=== PATIENT | male | born 1975 | race Caucasian/White ===

== ENCOUNTER 2016-05-11 09:45 | Emergency (ER) | payer MEDICARE ==
[~2016-05-11] VITALS: Ht 185.4 cm; Wt 151.5 kg
[~2016-05-11 09:45] MED LIST: /CELE20CA PO; ABIL5TAB; ALEVE PO; AMIT50TA PO; AMIT50TA4 PO; ASPI325T OR; ASPI81TA85 PO; BENA25TA9 PO; BUSP10TA2 OR; BUSP15TA OR; CARI350T19 PO; CELE40TA; CELE40TA OR; CLEO150C PO; CLON1TAB PO; CYMB60CA3 PO; FLUR15CA2; FURO40TA2 OR; GABA-282 PO; GABA300C2 PO; GEMFIBROZIL PO; GEOD20CA14; GEOD20CA14 PO; GLUC500T PO; GLUC850T OR; HYDR25TA6; HYDR25TA8 OR; HYDR50IN3 PO; IBUP600T26 PO; IBUP80TA PO; KLON1TAB OR; LASI40TA; LEVO25TABR; LEVOXYL25 MCG OR; LISI10TA4; LISI10TA4 OR; LITH300T2 OR; LITH450T; LORA2TAB OR; LYRI150C PO; MAGN500T2; MAGN500T2 OR; MECL-68 PO; MELOPOW PO; METF1000 PO; METH10TA2 OR; METH10TA2 PO; NEUR100C OR; NICO21DI4 TD; NOVOLOG100 MG/ML SC; OXYC-517 PO; OXYC1TAB23 PO; ROBA750T4 PO; SAVE25TA PO; SERT-138 PO; SIMV40TA2; SIMV40TA2 OR; SOMA350T PO; TIZA4CAP3 PO; TRAZ100T4 PO; TYLE167L PO; VIST50CA OR; VITA100T OR; ZINC220C OR; ZINC220T2 OR; ZINCLOZ9; ZOLO100T PO; [UNRECOGNIZED DRUG - OTHER] PO; eskalith cr OR
[2016-05-11] MEDS ORDERED: METF1000 PO (09:57)
[2016-05-11] MEDS ORDERED: SERT50TA PO (10:01)
[2016-05-11] MEDS ORDERED: LITH300C PO (10:02)
[2016-05-11] MEDS ORDERED: SIMV40TA2 PO (10:02)
[2016-05-11] MEDS ORDERED: NS 500 ML IV ONE (10:45)
[2016-05-11 11:00] LABS: BASO # 0.1 K/mm3 (0.0-0.2); BASO % 0.9 % (0.0-1.0); EOS # 0.2 K/mm3 (0.0-0.50); EOS % 2.4 % (0.0-3.0); LARGE UNSTAINED CELL # 0.1 K/mm3 (0.0-0.4); LYMPH # 1.7 K/mm3 (1.5-4.5); LYMPH % 20.8 % (24.0-44.0); MEAN CORPUSCULAR HEMOGLOBIN 26.7 pg (27.0-33.0); MEAN CORPUSCULAR HGB CONC 32.7 g/dl (32.0-36.5); MEAN CORPUSCULAR VOLUME 81.7 fl (80.0-96.0); MONO # 0.3 K/mm3 (0.0-0.8); MONO % 4.3 % (0.0-5.0); NEUTROPHILS # 5.5 K/mm3 (1.8-7.7); NEUTROPHILS % 70.6 % (36.0-66.0); PLATELET COUNT, AUTOMATED 201 k/mm3 (150-450); RED CELL DISTRIBUTION WIDTH 13.6 % (11.5-14.5); WHITE BLOOD COUNT 7.8 K/mm3 (4.0-10.0)
[2016-05-11 11:06] LABS: ANION GAP 7 MEQ/L (8-16); BLOOD UREA NITROGEN 16 MG/DL (7-18); CALCIUM LEVEL 8.7 MG/DL (8.5-10.1); CARBON DIOXIDE LEVEL 24 MEQ/L (21-32); CHLORIDE LEVEL 111 MEQ/L (98-107); CREATININE FOR GFR 0.86 MG/DL (0.70-1.30); GLOMERULAR FILTRATION RATE > 60.0 (>60); GLUCOSE, FASTING 132 MG/DL (70-105); POTASSIUM SERUM 4.1 MEQ/L (3.5-5.1); SODIUM LEVEL 142 MEQ/L (136-145)
[2016-05-11] MEDS ORDERED: LORazepam 2 MG/ML VIAL (J2060) IV ONE (12:30)
--- NOTE | 2016-05-11 16:00 | REP ---
MRA BRAIN WITHOUT CONTRAST: HISTORY: Vertigo. 3D [id number] MR angiography was performed at the level of the [place]. The examination is very limited secondary to motion. There is no definite aneurysm, arteriovenous malformation, or atherosclerotic lesion. The A1 segment of the right anterior cerebral artery is hypoplastic. Major intracranial vessels are patent. The right vertebral artery is dominant. IMPRESSION: Limited examination demonstrating no definite aneurysm or arteriovenous malformation. Signed by David Schmidt MD 05/11/2016 04:09 P
--- NOTE | 2016-05-11 16:02 | REP ---
MR BRAIN WITHOUT CONTRAST: HISTORY: Vertigo. COMPARISON: CT 02/09/2012. There are no areas of abnormal signal intensity in the brain. There is no intraparenchymal hemorrhage, infarct, mass, or midline shift. The sella turcica is partially empty. The ventricular system is normal in appearance. There is no extracerebral collection. Mucosal thickening is present in the left maxillary sinus. IMPRESSION:There is no intracranial lesion. Signed by David Schmidt MD 05/11/2016 04:09 P
[2016-05-11] MEDS ORDERED: AZIT250T3 PO (16:13)
[2016-05-11] MEDS ORDERED: MECL-68 PO (16:14)
[2016-05-11] MEDS ORDERED: AZITHROMYCIN 250 MG TAB PO ONE (16:15)
[2016-05-11 16:52] VITALS: BP 128/72
--- NOTE | 2016-05-11 21:49 | ECGEPIP ---
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
== END 2016-05-11 17:02 | disposition home or self-care (01) ==
LOC: M ED 11:58
DX: R42 Dizziness and giddiness (principal); H66.92 Otitis media, unspecified, left ear
CPT/HCPCS: 36415; 70544; 70551; 80048; 84443; 85025; 93005; 93041; 94760; 96374; 99285; J2060

== ENCOUNTER → 2016-12-01 | Outpatient (REF) | payer OTHER ==
[~2016-12-01] MED LIST changes: +AZIT-12 PO; +BENA25TA10 PO; -BENA25TA9 PO; +IBUP-1022 PO; -IBUP600T26 PO; +LITH300C PO; +METF10004 PO; +SERT50TA PO; +SIMV40TA2 PO; +TRAZ-136 PO; -TRAZ100T4 PO
== END ==
LOC: M LAB REF 12:21
PROVIDERS: ATTEND Psychiatry & Neurology Psychiatry
DX: Z51.81 Encounter for therapeutic drug level monitoring (principal); Z79.899 Other long term (current) drug therapy

== ENCOUNTER → 2017-02-23 | Outpatient (REF) | payer OTHER ==
[2017-02-23 13:06] LABS: HEMATOCRIT 45.4 % (42.0-52.0); HEMOGLOBIN 15.4 g/dl (14.0-18.0); MEAN CORPUSCULAR HEMOGLOBIN 27.1 pg (27.0-33.0); MEAN CORPUSCULAR HGB CONC 33.9 g/dl (32.0-36.5); MEAN CORPUSCULAR VOLUME 79.9 fl (80.0-96.0); PLATELET COUNT, AUTOMATED 248 10^3/uL (150-450); RED BLOOD COUNT 5.68 10^6/uL (4.30-6.10); RED CELL DISTRIBUTION WIDTH 13.5 % (11.5-14.5); WHITE BLOOD COUNT 9.9 10^3/uL (4.0-10.0)
[2017-02-23 13:49] LABS: ALBUMIN 4.2 GM/DL (3.2-5.2); ALBUMIN/GLOBULIN RATIO 1.24 (1.00-1.93); ALKALINE PHOSPHATASE 55 U/L (45-117); ALT/SGPT 32 U/L (12-78); ANION GAP 9 MEQ/L (8-16); AST/SGOT 17 U/L (7-37); BILIRUBIN,TOTAL 0.5 MG/DL (0.2-1.0); BLOOD UREA NITROGEN 14 MG/DL (7-18); CALCIUM LEVEL 9.4 MG/DL (8.5-10.1); CARBON DIOXIDE LEVEL 26 MEQ/L (21-32); CHLORIDE LEVEL 106 MEQ/L (98-107); CREATININE FOR GFR 0.92 MG/DL (0.70-1.30); FREE T4 0.86 NG/DL (0.76-1.46); GLOMERULAR FILTRATION RATE > 60.0 (>60); GLUCOSE, FASTING 251 MG/DL (70-105); POTASSIUM SERUM 4.6 MEQ/L (3.5-5.1); SODIUM LEVEL 141 MEQ/L (136-145); TOTAL PROTEIN 7.6 GM/DL (6.4-8.2)
[2017-02-23 15:28] LABS: ESTIMATED AVERAGE GLUCOSE 128 MG/DL (60-110); HEMOGLOBIN A1c 6.1 %
== END ==
LOC: M LAB REF 12:47
DX: F31.81 Bipolar II disorder (principal); Z79.899 Other long term (current) drug therapy

== ENCOUNTER → 2017-04-27 | Outpatient (REF) | payer OTHER ==
[2017-04-27 16:05] LABS: LITHIUM LEVEL 0.65 MEQ/L (0.60-1.20)
== END ==
LOC: M LAB REF 15:05
DX: Z51.81 Encounter for therapeutic drug level monitoring (principal); Z79.899 Other long term (current) drug therapy
CPT/HCPCS: 80178

== ENCOUNTER → 2017-09-21 | Outpatient (CLI) | payer MEDICARE | LOC: M OUTALCOH 07:51 | DX: F14.20 Cocaine dependence, uncomplicated (principal) | CPT/HCPCS: H0001 ==

== ENCOUNTER 2018-02-12 13:24 | Inpatient (IN) | payer MEDICARE, MEDICAID ==
[~2018-02-12] VITALS: Ht 182.9 cm; Wt 162.1 kg
[~2018-02-12 13:24] MED LIST changes: -CLON1TAB PO; +CLON1TAB8 PO; -GABA-282 PO; +GABA-843 PO; +TIZA4CAP PO; -TIZA4CAP3 PO; -TRAZ-136 PO; +TRAZ-163 PO
[2018-02-12] MEDS ORDERED: AMMONIA AROMATIC INHALANT (FLOOR STOCK) As Ordered ONE (13:29)
[2018-02-12 13:47] LABS: BASO # 0.1 10^3/uL (0.0-0.2); BASO % 0.9 % (0.0-1.0); EOS # 0.1 10^3/uL (0.0-0.50); EOS % 1.9 % (0.0-3.0); HEMATOCRIT 51.1 % (42.0-52.0); HEMOGLOBIN 16.7 g/dl (13.5-17.5); LYMPH # 1.8 10^3/uL (1.5-4.5); LYMPH % 26.4 % (24.0-44.0); MEAN CORPUSCULAR HEMOGLOBIN 26.9 pg (27.0-33.0); MEAN CORPUSCULAR HGB CONC 32.7 g/dl (32.0-36.5); MEAN CORPUSCULAR VOLUME 82.3 fl (80.0-96.0); MONO # 0.5 10^3/uL (0.0-0.8); MONO % 7.4 % (0.0-5.0); NEUTROPHILS # 4.2 10^3/uL (1.8-7.7); PLATELET COUNT, AUTOMATED 238 10^3/uL (150-450); RED BLOOD COUNT 6.21 10^6/uL (4.30-6.10); WHITE BLOOD COUNT 6.7 10^3/uL (4.0-10.0)
[2018-02-12] MEDS ORDERED: ACET-683 PO (13:59)
[2018-02-12] MEDS ORDERED: LATU20TA PO (14:01)
[2018-02-12] MEDS: NS 1,000 ML IV SCH (14:09)
[2018-02-12] MEDS ORDERED: PROPOFOL 200 MG/20 ML VIAL IV ONE ×2 (14:15→15:00)
[2018-02-12] MEDS ORDERED: VECURONIUM BROMIDE 10 MG VIAL IV ONE (14:15)
[2018-02-12] MEDS ORDERED: ACETYLCYSTEINE 15,000 MG in D5W 250 ML IV ONE (14:30)
[2018-02-12 14:34] LABS: ACETAMINOPHEN LEVEL < 2.0 UG/ML (10.0-30.0); ALBUMIN 3.8 GM/DL (3.2-5.2); ALT/SGPT 26 U/L (12-78); BILIRUBIN,DIRECT 0.1 MG/DL (0.0-0.2); BILIRUBIN,TOTAL 0.5 MG/DL (0.2-1.0); BLOOD UREA NITROGEN 11 MG/DL (7-18); CALCIUM LEVEL 8.9 MG/DL (8.5-10.1); CARBON DIOXIDE LEVEL 30 MEQ/L (21-32); CHLORIDE LEVEL 105 MEQ/L (98-107); CPK CREATINE PHOSPHOKINASE 123 U/L (39-308); CREATININE FOR GFR 1.16 MG/DL (0.70-1.30); ETHYL ALCOHOL (ETHANOL) < 0.003 % (0.000-0.010); GLOMERULAR FILTRATION RATE > 60.0 (>60); GLUCOSE, FASTING 160 MG/DL (70-100); POTASSIUM SERUM 4.2 MEQ/L (3.5-5.1); SALICYLATE LEVEL 1.9 MG/DL (5.0-30.0); SODIUM LEVEL 143 MEQ/L (136-145); THYROID STIMULATING HORMONE 0.971 uIU/ML (0.358-3.740)
--- NOTE | 2018-02-12 14:53 | REP ---
Chest one-view HISTORY: Drug overdose Comparison: 05/29/2010 The lungs are clear. The heart is normal in size. The pulmonary vasculature is normal in appearance. Impression: No acute disease. Electronically Signed by David Schmidt MD 02/12/2018 02:45 P
[2018-02-12 14:56] LABS: INR 0.99; PROTHROMBIN TIME 13.2 SECONDS (12.1-14.4)
[2018-02-12 14:57] LABS: PARTIAL THROMBOPLASTIN TIME 28.3 SECONDS (25.4-37.6)
[2018-02-12] MEDS ORDERED: CLON2TAB7 PO (15:12)
[2018-02-12] MEDS ORDERED: FURO40TA2 PO (15:12)
[2018-02-12] MEDS ORDERED: ACET500T15 PO (15:12)
[2018-02-12] MEDS ORDERED: ADDE1TAB14 PO (15:12)
[2018-02-12] MEDS ORDERED: TRAZ-186 PO (15:12)
[2018-02-12] MEDS ORDERED: LITH600C PO (15:12)
[2018-02-12] MEDS ORDERED: MED REC COMMENT (15:13)
[2018-02-12 15:16] LABS: LITHIUM LEVEL < 0.20 MEQ/L (0.60-1.20)
--- NOTE | 2018-02-12 15:16 | REP ---
Chest one-view HISTORY: ET tube placement Comparison: 02:00 p.m. The lungs are clear. The heart is normal in size. The pulmonary vasculature is normal in appearance. An ET tube and NG tube are present. ET tube is present just proximal to the wilber. Impression: 1. No acute disease. 2. The patient is status post ET tube and NG tube placement. ET tube is present just proximal to the wilber. Electronically Signed by David Schmidt MD 02/12/2018 03:07 P
--- NOTE | 2018-02-12 15:22 | REP ---
CT Head without contrast HISTORY: Drug overdose COMPARISON: 02/09/2012 There is no intraparenchymal hemorrhage, acute infarct, mass or midline shift. The ventricular system is normal in appearance. There is no extra cerebral collection. There is no fracture. The visualized sinuses are clear. IMPRESSION: There is no intracranial lesion. Electronically Signed by David Schmidt MD 02/12/2018 03:13 P
[2018-02-12] MEDS ORDERED: PROPOFOL 1,000 MG/100 ML VIAL As Ordered ONE (15:27)
[2018-02-12] MEDS ORDERED: ACETYLCYSTEINE 5,000 MG in D5W 500 ML IV ONE (15:30)
[2018-02-12] MEDS ORDERED: PROPOFOL 1,000 MG in APPROPRIATE DILUENT 1 EA IV SCH (15:30)
[2018-02-12 15:53] LABS: ABG BASE EXCESS -2.1 (-2.0-2.0); ABG HCO3 26.9 MEQ/L (22.0-26.0); ABG PARTIAL PRESSURE O2 73.3 mmHg (75.0-100.0); ABG STANDARD HCO3 22.7 MEQ/L (22.0-26.0); ABG TOTAL CO2 28.9 MEQ/L (22.0-29.0)
[2018-02-12 15:57] LABS: AMPHETAMINES LEVEL URINE NEGATIVE (NEGATIVE); BARBITURATES URINE NEGATIVE (NEGATIVE); BENZODIAZEPINES URINE POSITIVE (NEGATIVE); CANNABINOIDS URINE NEGATIVE (NEGATIVE); COCAINE METABOLITE URINE POSITIVE (NEGATIVE); METHADONE URINE NEGATIVE (NEGATIVE); OPIATES URINE NEGATIVE (NEGATIVE); PHENCYCLIDINE URINE NEGATIVE (NEGATIVE)
[2018-02-12 15:57] LABS: ABG pH (ARTERIAL) 7.244 UNITS (7.350-7.450)
[2018-02-12 15:58] LABS: ABG PARTIAL PRESSURE CO2 63.7 mmHg (35.0-45.0)
--- NOTE | 2018-02-12 17:09 | HPE ---
DATE OF ADMISSION: 02/12/2018 Critical care time was one hour. This excludes all procedures. Mr. Meza is an unfortunate 42-year-old male who has prior history of recurrent suicide attempts, usually with drug overdoses. Apparently, he was having a wellness check, as he was not answering his phone, found down with two bottles of pills missing, one clonazepam, which was recently filled for 30 days and the other trazodone for 30 days. There was an empty Lasix bottle adjacent that was found by emergency remote medical coder (EMT); however this was filled in August. The patient does not have any significant Tylenol level, although there were reports of possible Tylenol ingestion and therefore, acetylcysteine was stopped in the emergency room. The patient had a Jewell Coma Score (GCS) less than 8 and therefore was intubated. He does have a prolonged exhalation phase and some bronchospasm. It did not respond to nebulized therapy. PAST MEDICAL HISTORY: 1. Diabetes. 2. Hyperlipidemia. 3. Hypertension. 4. Chronic neck pain. 5. Obstructive sleep apnea. 6. Obesity. 7. Congenital zinc deficiency. 8. B12 deficiency. 9. Nonalcoholic fatty liver disease. 10. Anxiety/depression. 11. Polysubstance abuse with history of suicidality. 12. Tobacco abuse. ALLERGIES: Multiple drug allergies are listed in the computer. METHADONE, PENICILLINS, PENICILLIN CROSS REACTORS, SULFA DRUGS, SULFA DRUG CROSS REACTORS, and ZOLPIDEM. At this point in time I am unable to obtain social, family history, review of systems, physical exam. Patient is sedated on mechanical ventilation. Temperature is 97.6, pulse is 81, respiratory rate is 20, blood pressure is 131/77, with an oxygen saturation of 92% on 0.50 FiO2. HEENT: Sclerae clear and anicteric. Pupils equal, react to light. Mucous membranes moist without lesions. Tongue is midline. Mallampati four. NECK: Is large in circumference. LYMPHATICS: No cervical or supraclavicular adenopathy. CARDIAC: Distant S1, S2, without audible murmur, rub or gallop. Point of maximum impulse (PMI) is difficult to palpate due to body habitus. PULMONARY: Decreased breath sounds throughout with expiratory wheeze throughout both lung griggs. There is prolongation of the expiratory phase. There is no accessory muscle use. ABDOMEN: Obese, soft, nontender, nondistended. No hepatosplenomegaly. No masses or hernia. EXTREMITIES: No cyanosis, clubbing or edema. SKIN: Is pale, cool and dry, without rash, jaundice, bruising. There is a tattoo on his left ankle. MUSCULOSKELETAL: No evidence of musculoskeletal injury. No joint effusion. LABORATORY EVALUATION: Shows a white blood cell count of 6.7, hemoglobin 16.7, hematocrit of 51, platelet count of 238. Sodium is 143, potassium 4.2, chloride 105, bicarbonate of 30, BUN 11, creatinine 1.16, with a glucose of 160, anion gap of 8. Tylenol level less than 2. Salicylate level is 1.9. Chest x-ray shows some cardiomegaly and enlarged mediastinal structures. Some minimal increased markings without dense infiltrate. EKG shows a normal sinus rhythm with a respiratory rate of 70 and right bundle branch block pattern, QTC of 425, no ST elevation. IMPRESSION: Acute respiratory failure secondary to toxic encephalopathy from drug overdose. Will continue to monitor patient on mechanical ventilation, perform daily sedation vacation, assess for his readiness for extubation based on his neurologic status. He does have some wheezing on exam. Will continue nebulized therapy. Monitor for signs, symptoms of infection while he is on mechanical ventilation. He will be on an H2 martha for gastrointestinal (GI) prophylaxis, Lovenox for deep venous thrombosis (DVT) prophylaxis. We will also have him on cardiac monitoring to monitor for the development of an arrhythmia. Critical care time as mentioned above. This excludes all procedures.
[2018-02-12] MEDS: PROPOFOL 1,000 MG in APPROPRIATE DILUENT 1 EA IV SCH ×3 (17:39→22:08)
[2018-02-12 17:42] LABS: ABG BASE EXCESS -0.5 (-2.0-2.0); ABG HCO3 27.7 MEQ/L (22.0-26.0); ABG O2 SATURATION 97.5 % (95.0-99.0); ABG PARTIAL PRESSURE CO2 59.5 mmHg (35.0-45.0); ABG PARTIAL PRESSURE O2 99.4 mmHg (75.0-100.0); ABG STANDARD HCO3 24.1 MEQ/L (22.0-26.0); ABG TOTAL CO2 29.5 MEQ/L (22.0-29.0); ABG pH (ARTERIAL) 7.286 UNITS (7.350-7.450)
[2018-02-12] MEDS: methylPREDNISolone INJ 125 MG/2 ML VIAL (J2930) IV SCH (17:51)
[2018-02-12 18:11] VITALS: BP 123/65
[2018-02-12] MEDS: FAMOTIDINE 20 MG TAB PO SCH (18:31)
[2018-02-12] MEDS: HumaLOG INSULIN (NovoLOG) PER UNIT SC SCH (18:32)
[2018-02-12] MEDS ORDERED: ACETYLCYSTEINE 10,000 MG in D5W 1,000 ML IV ONE (19:30)
[2018-02-12] MEDS: IPRATROPIUM 0.5MG/ALBUTEROL 2.5MG INH SOL UD 3ML (DUONEB)(J7620) NEB SCH (19:43)
[2018-02-12 20:00] VITALS: BP 112/58
[2018-02-12] MEDS: CHLORHEXIDINE GLUCONATE 0.12 % 15ML UDC (PERIDEX ORAL RINSE) MT SCH (20:34)
[2018-02-12] MEDS: ENOXAPARIN 40 MG/0.4 ML SYRINGE (J1650) SC SCH (20:34)
[2018-02-12 22:00] VITALS: BP 107/58
[2018-02-12] MEDS ORDERED: GLUCOSE 4 GM CHEW TABLET PO PRN (23:15)
[2018-02-12] MEDS ORDERED: GLUCAGON FOR INJ 1 MG VIAL (J1610) SC PRN (23:15)
[2018-02-12] MEDS ORDERED: DEXTROSE 50% 50 ML SYRINGE IV PRN (23:15)
[2018-02-13] VITALS (15 sets, daily range): BP systolic 94–129; BP diastolic 49–69
[2018-02-13] MEDS: HumaLOG INSULIN (NovoLOG) PER UNIT SC SCH ×5 (00:27→21:00)
[2018-02-13] MEDS: methylPREDNISolone INJ 125 MG/2 ML VIAL (J2930) IV SCH ×2 (00:28→09:30)
[2018-02-13] MEDS: NS 1,000 ML IV SCH (02:03)
[2018-02-13] MEDS: PROPOFOL 1,000 MG in APPROPRIATE DILUENT 1 EA IV SCH ×3 (02:04→10:51)
[2018-02-13 05:48] LABS: ABG BASE EXCESS 0.4 (-2.0-2.0); ABG HCO3 26.4 MEQ/L (22.0-26.0); ABG O2 SATURATION 95.7 % (95.0-99.0); ABG PARTIAL PRESSURE CO2 47.2 mmHg (35.0-45.0); ABG PARTIAL PRESSURE O2 75.1 mmHg (75.0-100.0); ABG STANDARD HCO3 24.8 MEQ/L (22.0-26.0); ABG TOTAL CO2 27.8 MEQ/L (22.0-29.0); ABG pH (ARTERIAL) 7.365 UNITS (7.350-7.450)
--- NOTE | 2018-02-13 05:54 | ECGEPIP ---
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
[2018-02-13] MEDS: IPRATROPIUM 0.5MG/ALBUTEROL 2.5MG INH SOL UD 3ML (DUONEB)(J7620) NEB SCH (07:58)
--- NOTE | 2018-02-13 08:21 | REP ---
Chest one-view HISTORY: Respiratory failure Comparison: 02/12/2018 Patchy density is present in the left lower lobe consistent with atelectasis or infiltrate. The right lung is clear. The heart is normal in size. The pulmonary vasculature is normal in appearance. An ET tube and NG tube are present. Impression: Left lower lobe atelectasis or infiltrate. Electronically Signed by David Schmidt MD 02/13/2018 08:12 A
[2018-02-13] MEDS: CHLORHEXIDINE GLUCONATE 0.12 % 15ML UDC (PERIDEX ORAL RINSE) MT SCH (09:29)
[2018-02-13] MEDS: FAMOTIDINE 20 MG TAB PO SCH (09:30)
[2018-02-13 10:19] LABS: BASO % 0.1 % (0.0-1.0); HEMATOCRIT 45.5 % (42.0-52.0); LYMPH # 1.3 10^3/uL (1.5-4.5); LYMPH % 8.9 % (24.0-44.0); MEAN CORPUSCULAR HEMOGLOBIN 26.9 pg (27.0-33.0); MEAN CORPUSCULAR HGB CONC 32.3 g/dl (32.0-36.5); MEAN CORPUSCULAR VOLUME 83.3 fl (80.0-96.0); MONO % 6.4 % (0.0-5.0); NEUTROPHILS # 12.5 10^3/uL (1.8-7.7); NEUTROPHILS % 84.2 % (36.0-66.0); PLATELET COUNT, AUTOMATED 197 10^3/uL (150-450); RED BLOOD COUNT 5.46 10^6/uL (4.30-6.10); WHITE BLOOD COUNT 14.9 10^3/uL (4.0-10.0)
[2018-02-13 10:36] LABS: HEMOGLOBIN 14.7 g/dl (13.5-17.5)
[2018-02-13 10:52] LABS: ALBUMIN 3.2 GM/DL (3.2-5.2); ALT/SGPT 21 U/L (12-78); BILIRUBIN,TOTAL 0.3 MG/DL (0.2-1.0); BLOOD UREA NITROGEN 11 MG/DL (7-18); CALCIUM LEVEL 8.8 MG/DL (8.5-10.1); CARBON DIOXIDE LEVEL 27 MEQ/L (21-32); CHLORIDE LEVEL 110 MEQ/L (98-107); CREATININE FOR GFR 0.96 MG/DL (0.70-1.30); GLOMERULAR FILTRATION RATE > 60.0 (>60); GLUCOSE, FASTING 146 MG/DL (70-100); POTASSIUM SERUM 3.8 MEQ/L (3.5-5.1); SODIUM LEVEL 144 MEQ/L (136-145); TOTAL PROTEIN 6.7 GM/DL (6.4-8.2)
--- NOTE | 2018-02-13 12:06 | CCN ---
DATE OF SERVICE: 02/13/2018 Critical care time was 46 minutes, this excludes all procedures. At bedside this morning during sedation vacation, patient was purposeful. He had good cough reflex, is able to shake his head yes or no, was able to lift his right arm to command. A trial extubation has been performed. The emergency room (ER) had reported a difficult airway. There was a clear air leak around the tube when the cuff was deflated. No significant events overnight. PHYSICAL EXAM: Temperature is 99.0, pulse is 77, respiratory rate 25, blood pressure is 99/50 with a mean arterial pressure of 66, oxygen saturation is 96% on 0.50. Before extubation, I had him on 0.35 FiO2 and his oxygen saturations was 94%. GENERAL: Patient able to follow commands as stated above. Awake, on mechanical ventilation and coughing. HEENT: Sclerae clear and anicteric. Pupils equal, react to light. Mucous membranes are moist. Tongue is midline. Neck is supple, though enlarged. LYMPH: No cervical, supraclavicular, or axillary adenopathy. CARDIAC: Regular S1, S2 without audible murmur, rub, or gallop. No elevated JVP. No peripheral edema. PULMONARY: Clear to auscultation without rales, rhonchi, or wheezes. No accessory muscle use. Abdomen is obese, soft, nontender, nondistended. No hepatosplenomegaly. No masses or hernia. EXTREMITIES: No cyanosis, clubbing, or edema. SKIN: Pale without rash, jaundice, or bruising. A tattoo on his left ankle. MUSCULOSKELETAL: No muscle wasting. No joint effusion. No evidence of recent trauma. NEUROLOGIC: No evidence of seizure activities or tremor. No unilateral weakness. LABORATORY EVALUATION: Shows a sodium 144, potassium 3.8, chloride 110, bicarbonate of 27, BUN of 11, creatinine of 0.96 with a glucose of 146. His CBC shows an elevated white count of 14.9, hemoglobin 14.7, hematocrit of 45.5 with a platelet count of 197. Toxicology from yesterday was positive for benzodiazepines and cocaine. [place] levels were low. Patient had an empty bottles of recently filled clonazepam. Chest x-ray is clear without abnormality. Endotracheal tube is in good position. Minimal left lower lobe atelectasis. IMPRESSION: A 42-year-old male with respiratory failure secondary to toxic encephalopathy from drug overdose. Patient will require psychiatric evaluation prior to discharge. Will require a sitter. Will attempt endotracheal extubation today, as long as he tolerates this well, will start conversion to likely inpatient psychiatric therapy. Will advance diet as tolerated. Will continue to monitor for need for outpatient medications.
[2018-02-13] MEDS ORDERED: DEXTROSE 50% 50 ML SYRINGE IV PRN (16:30)
[2018-02-13] MEDS ORDERED: GLUCAGON FOR INJ 1 MG VIAL (J1610) SC PRN (16:30)
[2018-02-13] MEDS ORDERED: GLUCOSE 4 GM CHEW TABLET PO PRN (16:30)
[2018-02-13] MEDS: ENOXAPARIN 40 MG/0.4 ML SYRINGE (J1650) SC SCH (20:59)
[2018-02-14] VITALS (10 sets, daily range): BP systolic 97–129; BP diastolic 55–72
[2018-02-14 04:28] LABS: HEMATOCRIT 45.7 % (42.0-52.0); HEMOGLOBIN 14.2 g/dl (13.5-17.5); MEAN CORPUSCULAR HEMOGLOBIN 26.3 pg (27.0-33.0); MEAN CORPUSCULAR HGB CONC 31.1 g/dl (32.0-36.5); MEAN CORPUSCULAR VOLUME 84.6 fl (80.0-96.0); PLATELET COUNT, AUTOMATED 219 10^3/uL (150-450); WHITE BLOOD COUNT 11.6 10^3/uL (4.0-10.0)
[2018-02-14 06:02] LABS: ALBUMIN 3.1 GM/DL (3.2-5.2); ALT/SGPT 19 U/L (12-78); BILIRUBIN,TOTAL 0.4 MG/DL (0.2-1.0); BLOOD UREA NITROGEN 14 MG/DL (7-18); CALCIUM LEVEL 8.9 MG/DL (8.5-10.1); CARBON DIOXIDE LEVEL 28 MEQ/L (21-32); CHLORIDE LEVEL 110 MEQ/L (98-107); CREATININE FOR GFR 0.79 MG/DL (0.70-1.30); GLOMERULAR FILTRATION RATE > 60.0 (>60); GLUCOSE, FASTING 123 MG/DL (70-100); SODIUM LEVEL 145 MEQ/L (136-145); TOTAL PROTEIN 6.2 GM/DL (6.4-8.2)
[2018-02-14] MEDS: HumaLOG INSULIN (NovoLOG) PER UNIT SC SCH ×4 (07:49→21:00)
[2018-02-14] MEDS: FAMOTIDINE 20 MG TAB PO SCH (07:49)
[2018-02-14] MEDS ORDERED: ACETAMINOPHEN TAB 650MG DOSE (2X325MG) PO PRN (13:45)
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
--- NOTE | 2018-02-14 20:41 | IPN ---
DATE: 02/14/2018 SUBJECTIVE: The patient is seen and examined in the room today. Patient admitted that he has been overdosing on the Klonopin and also trazodone. He stated that was his suicidal attempt. At the time of encounter, the patient has been weaned off the oxygen. The patient still has a sitter. According to the staff, the patient has no issues with oral intake. The patient has a history of chronic obstructive pulmonary disease (COPD). We have requested family member to bring his home continuous positive airway pressure (CPAP); however, according to the patient's family, the patient has been very noncompliant with CPAP at home. OBJECTIVE: VITAL SIGNS: Temperature is 97.8, pulse 83, respirations 21, blood pressure 122/59, pulse oximetry is 93% in room air. GENERAL: Morbidly obese. The patient is alert and awake, able to answer questions. HEENT: Normocephalic, atraumatic. Extraocular motor grossly intact. CARDIOVASCULAR: Positive S1, S2, regular rate. LUNGS: Decreased breath sounds, probably due to body habitus. No wheezes or crackles appreciated. ABDOMEN: Obese, soft, nontender, nondistended. Bowel sounds present. EXTREMITIES: No edema appreciated. LABORATORY DATA: WBC is 11.6, hemoglobin 14.2, hematocrit 45.7, platelet count 219. Sodium is 145, potassium 4, chloride is 110, carbon dioxide 28, BUN 14, creatinine 0.79, GFR greater than 60, fasting glucose 123, calcium is 8.9, total bilirubin is 0.4, AST is 15, ALT 19, alkaline phosphatase is 57, total protein 6.2, albumin 3.1. ASSESSMENT AND PLAN: 1. Acute respiratory failure, status post intubation. Patient was extubated on 02/13/2018. Patient transferred to the hospitalist service. Continue to titrate the oxygen. Patient able to wean off the oxygen completely on 02/14/2018. Patient tolerated oral intake without any problems. 2. Suicide attempt. The patient admits overdosing on Klonopin and trazodone; he wished to end his own life. The patient had a sitter. Psychiatry has evaluated the patient. Patient is cleared by Poison Control, vital signs stable. Anticipate the patient will be transferred to inpatient mental health unit (IM) on 02/15/2018. 3. Obstructive sleep apnea (ABRAHAM). Noncompliant with CPAP at home. Patient will be on ABRAHAM protocol. 4. Diabetes. On sliding scale. On consistent carbohydrate diet. 5. History of hypertension. Patient's blood pressure is in satisfactory range. Patient is currently not on any hypertension medications. 6. Morbid obesity. Complicating patient's care. 7. Anxiety/depression and history of polysubstance abuse. The patient will be admitted to the [facility]. 8. Tobacco abuse. Continue to monitor. 9. Chronic back pain. On Tylenol. 10. Deep vein thrombosis (DVT) prophylaxis. On Lovenox.
[2018-02-14] MEDS: ENOXAPARIN 40 MG/0.4 ML SYRINGE (J1650) SC SCH (21:33)
[2018-02-15 06:00] VITALS: BP 124/82
[2018-02-15 06:43] LABS: HEMATOCRIT 46.3 % (42.0-52.0); HEMOGLOBIN 14.4 g/dl (13.5-17.5); MEAN CORPUSCULAR HEMOGLOBIN 26.3 pg (27.0-33.0); MEAN CORPUSCULAR HGB CONC 31.1 g/dl (32.0-36.5); MEAN CORPUSCULAR VOLUME 84.6 fl (80.0-96.0); PLATELET COUNT, AUTOMATED 221 10^3/uL (150-450); RED BLOOD COUNT 5.47 10^6/uL (4.30-6.10); WHITE BLOOD COUNT 11.9 10^3/uL (4.0-10.0)
[2018-02-15 07:10] LABS: ALBUMIN 2.9 GM/DL (3.2-5.2); ALT/SGPT 23 U/L (12-78); BILIRUBIN,TOTAL 0.5 MG/DL (0.2-1.0); BLOOD UREA NITROGEN 15 MG/DL (7-18); CALCIUM LEVEL 8.6 MG/DL (8.5-10.1); CARBON DIOXIDE LEVEL 29 MEQ/L (21-32); CHLORIDE LEVEL 110 MEQ/L (98-107); CREATININE FOR GFR 0.88 MG/DL (0.70-1.30); GLOMERULAR FILTRATION RATE > 60.0 (>60); GLUCOSE, FASTING 105 MG/DL (70-100); SODIUM LEVEL 144 MEQ/L (136-145); TOTAL PROTEIN 6.2 GM/DL (6.4-8.2)
[2018-02-15] MEDS: HumaLOG INSULIN (NovoLOG) PER UNIT SC SCH ×2 (07:30→12:15)
[2018-02-15] MEDS: FAMOTIDINE 20 MG TAB PO SCH (08:11)
[2018-02-15] MEDS ORDERED: SERTRALINE HCL 50 MG TAB PO SCH (09:00)
[2018-02-15 14:00] VITALS: BP 118/58
[2018-02-15] MEDS ORDERED: MAALOX 30 ML SUSP *UDC PO PRN (15:00)
[2018-02-15] MEDS ORDERED: MOM 30ML SUSPENSION UDC PO PRN (15:00)
[2018-02-15] MEDS ORDERED: ACETAMINOPHEN TAB 650MG DOSE (2X325MG) PO PRN (15:00)
[2018-02-15] MEDS ORDERED: MIRTAZAPINE 15 MG TAB PO SCH (21:00)
--- NOTE | 2018-02-17 16:29 | DS.PDOC ---
Discharge Summary General Date of Admission Feb 12, 2018 at 15:15 Date of Discharge 02/15/18 Specialist/Consultants Involve Dr. Ladd of Pulmonary, Dr. Lara of Psychiatry Discharge Summary PROCEDURES PERFORMED DURING STAY: None. ADMITTING/DISCHARGE DIAGNOSES: Suicide attempt with Trazodone/Klonopin Overdose Obstructive sleep apnea Diabetes mellitus Morbid obesity Hypertension Anxiety/depression COMPLICATIONS/CHIEF COMPLAINT: Acute Respiratory Failure. HISTORY OF PRESENT ILLNESS: . 42-year-old male with past Meckel history of diabetes, dyslipidemia, hypertension, chronic neck pain, obstructive sleep apnea, morbid obesity, anxiety/depression, and polysubstance abuse with history of suicidality was brought to the ER after the patient was found down with 2 bottles of pills missing, one clonazepam, and the other trazodone. The patient was intubated in the ER for failure to protect airway with a GCS of less than 8, and he was admitted to the clin asst service for further evaluation and management. During hospitalization, the patient was successfully extubated by pulmonary and downgraded to the hospitalist service. Given the patient's suicide attempt, and his admittance to this planned suicide attempt he was transferred to the [facility] service. At this time, the patient has been medically optimized for transfer. I've advised patient to follow-up with his primary care physician within 7 days following discharge from the inpatient mental health unit. Lastly, the patient has been advised to return to the ER for any acute emergency. DISCHARGE MEDICATIONS: Please see below. ALLERGIES: Please see below. PHYSICAL EXAMINATION ON DISCHARGE: VITAL SIGNS: Please see below. GENERAL: Awake, alert, oriented. No acute distress HEENT: Normocephalic, atraumatic. CARDIOVASCULAR: Normal rate, normal rhythm LUNGS: Decreased breath sounds ABDOMEN: Obese, soft, nontender, nondistended EXTREMITIES: No edema appreciated. LABORATORY DATA: Please see below. IMAGING: Chest one-view HISTORY: Respiratory failure Comparison: 02/12/2018 Patchy density is present in the left lower lobe consistent with atelectasis or infiltrate. The right lung is clear. The heart is normal in size. The pulmonary vasculature is normal in appearance. An ET tube and NG tube are present. Impression: Left lower lobe atelectasis or infiltrate. CT Head without contrast HISTORY: Drug overdose COMPARISON: 02/09/2012 There is no intraparenchymal hemorrhage, acute infarct, mass or midline shift. The ventricular system is normal in appearance. There is no extra cerebral collection. There is no fracture. The visualized sinuses are clear. IMPRESSION: There is no intracranial lesion. PROGNOSIS: Fair ACTIVITY: As tolerated. DIET: Low-fat, low-cholesterol, carb consistent, 2 g low sodium diet DISCHARGE PLAN: DISPOSITION: [facility]. DISCHARGE INSTRUCTIONS: I've advised patient to follow-up with his primary care physician within 7 days following discharge from the inpatient mental health unit. Lastly, the patient has been advised to return to the ER for any acute emergency. DISCHARGE CONDITION: Stable. TIME SPENT ON DISCHARGE: Greater than 30 minutes. Vital Signs/I&Os Vital Signs Date Time Temp Pulse Resp B/P (MAP) Pulse Ox O2 Delivery O2 Flow Rate FiO2 02/15/18 14:00 97.6 84 18 118/58 (78) 92 Room Air 02/14/18 10:00 2.0 02/13/18 11:00 50 Discharge Medications Scheduled Amphetamine/Dextroamphetamine (Adderall 5 mg) 1 Tab Tab, 20 MG PO BID, (Reported) Clonazepam (Clonazepam) 2 Mg Tab, 2 MG PO TID, (Reported) Furosemide (Furosemide) 40 Mg Tab, 40 MG PO BID, (Reported) [place] Carbonate ([place] Carbonate) 600 Mg Cap, 600 MG PO BID, (Reported) Trazodone HCl (Trazodone Hydrochloride) 50 Mg Tab, 150 MG PO QHS, (Reported) Scheduled PRN Acetaminophen (Acetaminophen) 500 Mg Tab, 500 MG PO for PAIN, (Reported) Miscellaneous Medications [Med Rec Comment] , (Reported) OBTAINED LIST FROM [facility] Allergies Coded Allergies: Methadone (Unverified Allergy, Severe, vomiting, 10/25/13) Penicillins (Verified Allergy, Severe, ANAPHYLAXIS, 05/13/12) Penicillins Cross Reactors (Verified Allergy, Severe, ANAPHYLAXIS, 05/13/12) Sulfa Drugs (Verified Allergy, Severe, ITCHING AND THROAT CLOSES, 05/13/12) Sulfa Drugs Cross Reactors (Verified Allergy, Severe, ITCHING AND THROAT CLOSES, 05/13/12) Zolpidem (Verified Adverse Reaction, Mild, PATIENT DOESNT LIKE TO TAKE, 05/13/12) BORIS TERAN MD Feb 17, 2018 16:28
== END 2018-02-15 16:20 | DRG 917 ==
LOC: EDBD 13:24 → M ED 13:24 → M ED INP 15:15 → M ICU 18:02 → M MS5PR 02-14 17:56
PROVIDERS: ADMIT Internal Medicine Pulmonary Disease; ATTEND Internal Medicine
PROC: 5A1935Z Respiratory Ventilation, Less than 24 Consecutive Hours (ICD-10-PCS; principal; 2018-02-12)
PROC: 0BH17EZ Insertion of Endotracheal Airway into Trachea, Via Natural or Artificial Opening (ICD-10-PCS; 2018-02-12)
DX: T42.4X2A Poisoning by benzodiazepines, intentional self-harm, initial encounter (principal); J96.90 Respiratory failure, unspecified, unspecified whether with hypoxia or hypercapnia; G92 Toxic encephalopathy; Z68.42 Body mass index [BMI] 45.0-49.9, adult; F33.2 Major depressive disorder, recurrent severe without psychotic features; K76.0 Fatty (change of) liver, not elsewhere classified; E66.01 Morbid (severe) obesity due to excess calories; E53.8 Deficiency of other specified B group vitamins; I10 Essential (primary) hypertension; E11.9 Type 2 diabetes mellitus without complications; E78.5 Hyperlipidemia, unspecified; M54.2 Cervicalgia; G47.33 Obstructive sleep apnea (adult) (pediatric); F41.9 Anxiety disorder, unspecified; Z88.0 Allergy status to penicillin; Z88.2 Allergy status to sulfonamides; Z88.8 Allergy status to other drugs, medicaments and biological substances; Z79.899 Other long term (current) drug therapy

== ENCOUNTER 2018-02-15 15:24 | Inpatient (IN) | payer MEDICARE, MEDICAID ==
[~2018-02-15] VITALS: Ht 185.4 cm; Wt 164.5 kg
[~2018-02-15 15:24] MED LIST changes: +ACET-683 PO; +ACET500T15 PO; +ADDE1TAB14 PO; +CLON2TAB7 PO; +FURO40TA2 PO; +LATU20TA PO; +LITH600C PO; +MED REC COMMENT; +TRAZ-186 PO
[2018-02-15] MEDS ORDERED: MOM 30ML SUSPENSION UDC PO PRN (15:45)
[2018-02-15] MEDS ORDERED: MAALOX 30 ML SUSP *UDC PO PRN (15:45)
[2018-02-15 17:57] VITALS: BP 143/79
[2018-02-15] MEDS: MIRTAZAPINE 15 MG TAB PO SCH (21:00)
[2018-02-16 06:46] VITALS: BP 131/29
[2018-02-16] MEDS: SERTRALINE HCL 50 MG TAB PO SCH (09:29)
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
[2018-02-16] MEDS ORDERED: LITHIUM CARBONATE 450 MG **CR** TAB PO ONE (14:45)
[2018-02-16] MEDS: busPIRone 5 MG TAB PO SCH ×2 (15:28→21:35)
[2018-02-16 18:00] VITALS: BP 134/75
[2018-02-16] MEDS: MIRTAZAPINE 15 MG TAB PO SCH (21:35)
[2018-02-16] MEDS: LITHIUM CARBONATE 450 MG **CR** TAB PO SCH (21:35)
[2018-02-17 07:27] VITALS: BP 127/73
[2018-02-17] MEDS: busPIRone 5 MG TAB PO SCH ×3 (08:43→21:36)
[2018-02-17] MEDS: SERTRALINE HCL 50 MG TAB PO SCH (08:43)
[2018-02-17] MEDS: LITHIUM CARBONATE 450 MG **CR** TAB PO SCH (08:44)
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
[2018-02-17] MEDS: ZINC SULFATE 220 MG CAP PO SCH ×2 (12:40→21:37)
[2018-02-17] MEDS: CYANOCOBALAMIN 500 MCG TAB PO SCH (12:42)
--- NOTE | 2018-02-17 16:37 | CR.PDOC ---
General Date of Consultation: Feb 17, 2018 Referring Provider: BORIS TERAN MD Attending Physician: GERALD SOSA DO Consultation REASON FOR CONSULTATION/CHIEF COMPLAINT: Medical management of comorbidities. HISTORY OF PRESENT ILLNESS: . 42-year-old male with past medical history of hypertension, diabetes mellitus, obstructive sleep apnea, anxiety/depression, polysubstance abuse with history of suicidality has been admitted to the inpatient mental health unit for a suicide attempt with Klonopin and trazodone overdose. The medical service has been consulted to aid in the management of the patient's medical comorbidities. At this time, the patient has denied any acute complaints of fevers, chills, chest pain, palpitations, shortness of breath, abdominal pain, or any nausea/vom iting/diarrhea. ALLERGIES: Please see below. HOME MEDICATIONS: Please see below. PAST MEDICAL HISTORY: As noted above REVIEW OF SYSTEMS: 10 point review of systems negative unless otherwise specified in HPI. PHYSICAL EXAMINATION: VITAL SIGNS: Please see below. GENERAL APPEARANCE: . Awake, alert, oriented 4. No acute distress. Morbidly obese HEENT: . Normocephalic, atraumatic RESPIRATORY: . Diminished breath sounds CARDIOVASCULAR: . Normal rate, normal S1, S2 ABDOMEN: . Soft, nontender, nondistended EXTREMITIES: . No erythema or tenderness LABORATORY DATA: Please see below. ASSESSMENT/PLAN: Trazodone/Klonopin Overdose, Suicide Attempt Management as per Psych Diabetes mellitus Carb consistent diet Obstructive sleep apnea Remain adherent to CPAP at home Morbid obesity Complicating medical care Tobacco abuse Counseled on cessation DVT prophylaxis Out of bed, ambulation Thank you for allowing the hospitalist team to participate in the care of this patient. Please do not hesitate to contact me should you have any questions. Thank you. Vital Signs/I&O Vital Signs Date Time Temp Pulse Resp B/P (MAP) Pulse Ox O2 Delivery O2 Flow Rate FiO2 02/17/18 07:27 98.4 73 20 127/73 (91) 02/15/18 17:57 95 Allergies Coded Allergies: Methadone (Unverified Allergy, Severe, vomiting, 10/25/13) Penicillins (Verified Allergy, Severe, ANAPHYLAXIS, 05/13/12) Penicillins Cross Reactors (Verified Allergy, Severe, ANAPHYLAXIS, 05/13/12) Sulfa Drugs (Verified Allergy, Severe, ITCHING AND THROAT CLOSES, 05/13/12) Sulfa Drugs Cross Reactors (Verified Allergy, Severe, ITCHING AND THROAT CLOSES, 05/13/12) Zolpidem (Verified Adverse Reaction, Mild, PATIENT DOESNT LIKE TO TAKE, 05/13/12) Home Medications Scheduled Amphetamine/Dextroamphetamine (Adderall 5 mg) 1 Tab Tab, 20 MG PO BID, (Reported) Clonazepam (Clonazepam) 2 Mg Tab, 2 MG PO TID, (Reported) Furosemide (Furosemide) 40 Mg Tab, 40 MG PO BID, (Reported) [place] Carbonate ([place] Carbonate) 600 Mg Cap, 600 MG PO BID, (Reported) Trazodone HCl (Trazodone Hydrochloride) 50 Mg Tab, 150 MG PO QHS, (Reported) Scheduled PRN Acetaminophen (Acetaminophen) 500 Mg Tab, 500 MG PO for PAIN, (Reported) Miscellaneous Medications [Med Rec Comment] , (Reported) OBTAINED LIST FROM [facility] BORIS TERAN MD Feb 17, 2018 16:37
[2018-02-17 18:00] VITALS: BP 135/71
[2018-02-17] MEDS: MIRTAZAPINE 15 MG TAB PO SCH (21:36)
[2018-02-17] MEDS: traZODone 50 MG TAB PO PRN (21:36)
[2018-02-18 06:00] VITALS: BP 133/95
[2018-02-18] MEDS: ACETAMINOPHEN TAB 650MG DOSE (2X325MG) PO PRN (07:31)
[2018-02-18] MEDS: CYANOCOBALAMIN 500 MCG TAB PO SCH (08:34)
[2018-02-18] MEDS: SERTRALINE HCL 50 MG TAB PO SCH (08:34)
[2018-02-18] MEDS: busPIRone 5 MG TAB PO SCH ×3 (08:34→21:12)
[2018-02-18] MEDS: ZINC SULFATE 220 MG CAP PO SCH ×2 (08:34→21:12)
[2018-02-18] MEDS ORDERED: PILL CRUSHER/CUTTER 1 EACH XX PRN (10:30)
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
[2018-02-18 12:00] VITALS: BP 139/89
[2018-02-18 18:00] VITALS: BP 144/92
[2018-02-18] MEDS: MIRTAZAPINE 15 MG TAB PO SCH (21:48)
[2018-02-19 06:00] VITALS: BP 136/73
[2018-02-19] MEDS: busPIRone 5 MG TAB PO SCH ×3 (08:59→20:59)
[2018-02-19] MEDS: SERTRALINE HCL 50 MG TAB PO SCH (08:59)
[2018-02-19] MEDS: CYANOCOBALAMIN 500 MCG TAB PO SCH (08:59)
[2018-02-19] MEDS: ZINC SULFATE 220 MG CAP PO SCH ×2 (09:00→20:59)
[2018-02-19] MEDS ORDERED: BENZOCAINE 10% 9GM TUBE (ANBESOL) TOP PRN (15:45)
[2018-02-19] MEDS: ACETAMINOPHEN TAB 650MG DOSE (2X325MG) PO PRN (16:07)
[2018-02-19] MEDS: BENZOCAINE 20% GEL 9GM TUBE (ANBESOL MAX STRENGTH) MT PRN (17:21)
--- NOTE | 2018-02-19 17:34 | MHIPN ---
DATE: 02/19/2018 CHIEF COMPLAINT: Says feels better. SUBJECTIVE: Seen for followup in the presence of staff, says feels better, and that he is somewhat less depressed, denies any suicidal thoughts or intents. He says he has periods of being depressed, usually last for shorter periods, tends to "crash", feels depressed for a few days, and then better, and then possibly somewhat elated in mood. This period has lasted for a couple of weeks or so. MENTAL STATUS EXAMINATION: Neat, cooperative, coherent. Affect is fairly broad. He denies any thoughts of harming himself or anyone else at present. Currently no evidence of any psychosis. Cognition is grossly intact. Judgment and insight fair. ASSESSMENT: Bipolar disorder by history, current episode depressed. PLAN: Continue current care and medications, tolerates them well. Encourage participation in activities in the unit. He asked questions regarding the diet, he has been diagnosed apparently with diabetes mellitus, says does not take any medicines for it and is possibly diet controlled, per the patient. In view of this, we will defer the decision regarding this diet to the PA, and the department of medicine. Meanwhile, needs to be encouraged to participate in activities in the unit. It should be noted hemoglobin A1c was 6.1 done a year or so ago. Further recommendations will be made depending on the clinic picture.
[2018-02-19 18:00] VITALS: BP 144/94
[2018-02-19] MEDS: ARIPiprazole 15 MG TAB (AbiLIFY) PO SCH (20:58)
[2018-02-19] MEDS: MIRTAZAPINE 15 MG TAB PO SCH (22:02)
[2018-02-19] MEDS: traZODone 50 MG TAB PO PRN (22:02)
[2018-02-20 06:00] VITALS: BP 129/60
[2018-02-20] MEDS: SERTRALINE HCL 50 MG TAB PO SCH (09:01)
[2018-02-20] MEDS: busPIRone 5 MG TAB PO SCH ×3 (09:01→21:45)
[2018-02-20] MEDS: CYANOCOBALAMIN 500 MCG TAB PO SCH (09:01)
[2018-02-20] MEDS: ZINC SULFATE 220 MG CAP PO SCH ×2 (09:01→21:46)
[2018-02-20] MEDS: hydrOXYzine 50 MG TAB PO PRN (15:29)
[2018-02-20 18:00] VITALS: BP 135/72
[2018-02-20] MEDS: traZODone 50 MG TAB PO PRN (21:45)
[2018-02-20] MEDS: MIRTAZAPINE 15 MG TAB PO SCH (21:45)
[2018-02-20] MEDS: ARIPiprazole 15 MG TAB (AbiLIFY) PO SCH (21:46)
[2018-02-21 06:19] VITALS: BP 129/57
[2018-02-21] MEDS: CYANOCOBALAMIN 500 MCG TAB PO SCH (08:37)
[2018-02-21] MEDS: SERTRALINE HCL 50 MG TAB PO SCH (08:37)
[2018-02-21] MEDS: busPIRone 5 MG TAB PO SCH (08:37)
[2018-02-21] MEDS: ACETAMINOPHEN TAB 650MG DOSE (2X325MG) PO PRN ×2 (08:37→22:07)
[2018-02-21] MEDS: ZINC SULFATE 220 MG CAP PO SCH ×2 (08:38→22:07)
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
[2018-02-21] MEDS: hydrOXYzine 50 MG TAB PO PRN ×2 (14:08→22:08)
[2018-02-21] MEDS: busPIRone 10 MG TAB PO SCH ×2 (15:02→22:06)
[2018-02-21 18:00] VITALS: BP 132/71
[2018-02-21] MEDS: ARIPiprazole 10 MG TAB PO SCH (22:07)
[2018-02-21] MEDS: traZODone 100 MG TAB PO PRN (22:08)
[2018-02-22 06:42] VITALS: BP 128/66
[2018-02-22] MEDS: SERTRALINE HCL 50 MG TAB PO SCH (09:17)
[2018-02-22] MEDS: ACETAMINOPHEN TAB 650MG DOSE (2X325MG) PO PRN ×3 (09:18→21:58)
[2018-02-22] MEDS: CYANOCOBALAMIN 500 MCG TAB PO SCH (09:18)
[2018-02-22] MEDS: ZINC SULFATE 220 MG CAP PO SCH ×2 (09:18→21:56)
[2018-02-22] MEDS: busPIRone 10 MG TAB PO SCH ×3 (09:18→21:56)
[2018-02-22 18:00] VITALS: BP 150/83
[2018-02-22] MEDS: ARIPiprazole 10 MG TAB PO SCH (21:56)
[2018-02-22] MEDS: traZODone 100 MG TAB PO PRN (21:59)
[2018-02-22] MEDS: BENZOCAINE 20% GEL 9GM TUBE (ANBESOL MAX STRENGTH) MT PRN (23:15)
[2018-02-23 06:33] VITALS: BP 143/66
[2018-02-23] MEDS: CYANOCOBALAMIN 500 MCG TAB PO SCH (08:57)
[2018-02-23] MEDS: busPIRone 10 MG TAB PO SCH ×3 (08:58→21:00)
[2018-02-23] MEDS: ZINC SULFATE 220 MG CAP PO SCH ×2 (08:58→21:00)
[2018-02-23] MEDS: SERTRALINE HCL 50 MG TAB PO SCH (08:58)
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
--- NOTE | 2018-02-23 14:19 | IPN ---
DATE OF VISIT: 02/23/2018 SUBJECTIVE: The patient is seen and examined in the inpatient mental health unit ([facility]) examining room today. The patient denies any acute complaints. He denied any chest pain or shortness of breath. He denies any worsening of right lower extremity swellings. OBJECTIVE: VITAL SIGNS: Temperature is 98.8, pulse 79, respiration 18, blood pressure is 143/66. The patient breathing comfortably in room air. GENERAL: No sign of acute distress. The patient is alert and awake and comfortable. HEENT: Normocephalic, atraumatic. Extraocular motor grossly intact. CARDIOVASCULAR: Positive S1, S2, regular rate. LUNGS: Clear to auscultation bilaterally. ABDOMEN: Obese, soft, nontender, nondistended. EXTREMITIES: Varicose vein noted on the right lower extremity. No lower extremity swelling appreciated. MOST RECENT LABORATORY DATA: Was performed on 02/15/2018. Shows WBC of 11.9, hemoglobin 14.4, hematocrit 46.3, platelet count is 221. Sodium is 144, potassium 4, chloride is 110, carbon dioxide 29, BUN 15, creatinine 0.88, GFR greater than 60, fasting glucose is 105. ASSESSMENT AND PLAN: 1. Suicidal attempt with Klonopin and trazodone overdose. Managed per psych. The patient is currently in [facility]. 2. Diabetes. A1c on record was 6.1 in February 2018. Follow a new set of A1c. Continue with a consistent-carbohydrate diet. 3. Obstructive sleep apnea (ABRAHAM). Noncompliant with home continuous positive airway pressure (CPAP). Complicating care. 4. Morbid obesity. Complicating medical care. 5. History of hypertension. Blood pressure is within normal range. Will continue to monitor the blood pressure. The patient will be on 2-gram low-salt diet. 6. Deep venous thrombosis (DVT) prophylaxis. Encouraged ambulation. MTDD
[2018-02-23 14:21] LABS: HEMATOCRIT 48.4 % (42.0-52.0); HEMOGLOBIN 15.8 g/dl (13.5-17.5); MEAN CORPUSCULAR HEMOGLOBIN 26.6 pg (27.0-33.0); MEAN CORPUSCULAR HGB CONC 32.6 g/dl (32.0-36.5); MEAN CORPUSCULAR VOLUME 81.3 fl (80.0-96.0); PLATELET COUNT, AUTOMATED 261 10^3/uL (150-450); RED BLOOD COUNT 5.95 10^6/uL (4.30-6.10); WHITE BLOOD COUNT 9.9 10^3/uL (4.0-10.0)
[2018-02-23 14:48] LABS: BLOOD UREA NITROGEN 12 MG/DL (7-18); CALCIUM LEVEL 8.7 MG/DL (8.5-10.1); CARBON DIOXIDE LEVEL 26 MEQ/L (21-32); CHLORIDE LEVEL 105 MEQ/L (98-107); CREATININE FOR GFR 0.93 MG/DL (0.70-1.30); GLOMERULAR FILTRATION RATE > 60.0 (>60); GLUCOSE, FASTING 188 MG/DL (70-100); MAGNESIUM LEVEL 1.7 MG/DL (1.8-2.4); POTASSIUM SERUM 4.5 MEQ/L (3.5-5.1); SODIUM LEVEL 142 MEQ/L (136-145)
[2018-02-23 15:00] LABS: HEMOGLOBIN A1c 6.4 %
[2018-02-23] MEDS: ACETAMINOPHEN TAB 650MG DOSE (2X325MG) PO PRN (17:57)
[2018-02-23 18:00] VITALS: BP 152/88
[2018-02-23] MEDS: BENZOCAINE 20% GEL 9GM TUBE (ANBESOL MAX STRENGTH) MT PRN (18:06)
[2018-02-23] MEDS: traZODone 100 MG TAB PO PRN (21:00)
[2018-02-23] MEDS: ARIPiprazole 10 MG TAB PO SCH (21:00)
[2018-02-24] MEDS: ACETAMINOPHEN TAB 650MG DOSE (2X325MG) PO PRN ×2 (01:36→08:06)
[2018-02-24] MEDS: BENZOCAINE 20% GEL 9GM TUBE (ANBESOL MAX STRENGTH) MT PRN (01:38)
[2018-02-24 06:23] VITALS: BP 143/78
[2018-02-24] MEDS: busPIRone 10 MG TAB PO SCH ×3 (08:05→20:24)
[2018-02-24] MEDS: ZINC SULFATE 220 MG CAP PO SCH ×2 (08:05→20:24)
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
[2018-02-24] MEDS ORDERED: TUBERCULIN PPD 5 UNITS/0.1 ML ID ONE (11:15)
[2018-02-24] MEDS: IBUPROFEN 800 MG TAB PO PRN ×2 (14:00→20:24)
[2018-02-24] MEDS: hydrOXYzine 50 MG TAB PO PRN ×2 (17:13→23:08)
[2018-02-24 18:00] VITALS: BP 130/88
[2018-02-24] MEDS: ARIPiprazole 10 MG TAB PO SCH (20:24)
[2018-02-24] MEDS: traZODone 100 MG TAB PO PRN (23:08)
[2018-02-25 06:25] VITALS: BP 144/63
[2018-02-25] MEDS: ZINC SULFATE 220 MG CAP PO SCH ×2 (08:00→21:27)
[2018-02-25] MEDS: busPIRone 10 MG TAB PO SCH ×3 (08:00→21:27)
[2018-02-25] MEDS: IBUPROFEN 800 MG TAB PO PRN ×2 (08:00→17:34)
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
[2018-02-25] MEDS: SERTRALINE HCL 50 MG TAB PO SCH (11:26)
[2018-02-25] MEDS: ZIPRASIDONE 20MG CAPSULE (GEODON) PO SCH (17:27)
[2018-02-25] MEDS: hydrOXYzine 50 MG TAB PO PRN (17:34)
[2018-02-25 18:00] VITALS: BP 134/81
[2018-02-25] MEDS: traZODone 100 MG TAB PO PRN (21:28)
[2018-02-25] MEDS: ACETAMINOPHEN TAB 650MG DOSE (2X325MG) PO PRN (21:28)
[2018-02-26] MEDS: IBUPROFEN 800 MG TAB PO PRN ×2 (06:29→17:10)
[2018-02-26 06:40] VITALS: BP 154/70
[2018-02-26] MEDS: ZIPRASIDONE 20MG CAPSULE (GEODON) PO SCH ×2 (07:59→17:37)
[2018-02-26] MEDS: ZINC SULFATE 220 MG CAP PO SCH ×2 (07:59→21:13)
[2018-02-26] MEDS: SERTRALINE HCL 50 MG TAB PO SCH (07:59)
[2018-02-26] MEDS: busPIRone 10 MG TAB PO SCH ×3 (07:59→21:13)
[2018-02-26] MEDS ORDERED: PPD DOCUMENTATION ENTRY MISC XX SCH (10:00)
[2018-02-26] MEDS: ACETAMINOPHEN TAB 650MG DOSE (2X325MG) PO PRN (16:08)
[2018-02-26 18:00] VITALS: BP 138/67
[2018-02-26] MEDS: traZODone 100 MG TAB PO PRN (21:13)
[2018-02-27 06:51] VITALS: BP_SYST 112; BP_SYST 120; BP_DIAS 66
[2018-02-27] MEDS: ACETAMINOPHEN TAB 650MG DOSE (2X325MG) PO PRN (06:54)
[2018-02-27 08:26] LABS: BASO # 0.1 10^3/uL (0.0-0.2); BASO % 0.7 % (0.0-1.0); EOS # 0.1 10^3/uL (0.0-0.50); EOS % 1.2 % (0.0-3.0); HEMATOCRIT 44.4 % (42.0-52.0); HEMOGLOBIN 14.5 g/dl (13.5-17.5); LYMPH # 1.7 10^3/uL (1.5-4.5); LYMPH % 25.9 % (24.0-44.0); MEAN CORPUSCULAR HEMOGLOBIN 26.2 pg (27.0-33.0); MEAN CORPUSCULAR HGB CONC 32.7 g/dl (32.0-36.5); MEAN CORPUSCULAR VOLUME 80.1 fl (80.0-96.0); MONO # 0.7 10^3/uL (0.0-0.8); MONO % 10.3 % (0.0-5.0); NEUTROPHILS # 4.1 10^3/uL (1.8-7.7); PLATELET COUNT, AUTOMATED 229 10^3/uL (150-450); RED BLOOD COUNT 5.54 10^6/uL (4.30-6.10); WHITE BLOOD COUNT 6.7 10^3/uL (4.0-10.0)
[2018-02-27] MEDS: SERTRALINE HCL 50 MG TAB PO SCH (08:46)
[2018-02-27] MEDS: ZINC SULFATE 220 MG CAP PO SCH ×2 (08:47→20:59)
[2018-02-27] MEDS: busPIRone 10 MG TAB PO SCH ×3 (08:47→21:00)
[2018-02-27] MEDS: ZIPRASIDONE 20MG CAPSULE (GEODON) PO SCH ×2 (08:47→17:40)
[2018-02-27 08:53] LABS: BLOOD UREA NITROGEN 9 MG/DL (7-18); CALCIUM LEVEL 8.5 MG/DL (8.5-10.1); CARBON DIOXIDE LEVEL 24 MEQ/L (21-32); CHLORIDE LEVEL 107 MEQ/L (98-107); GLOMERULAR FILTRATION RATE > 60.0 (>60); GLUCOSE, FASTING 162 MG/DL (70-100); MAGNESIUM LEVEL 1.8 MG/DL (1.8-2.4); POTASSIUM SERUM 4.2 MEQ/L (3.5-5.1); SODIUM LEVEL 139 MEQ/L (136-145)
[2018-02-27 08:58] LABS: ERYTHROCYTE SEDIMENTATION RATE 43 mm/hr (0-15)
[2018-02-27] MEDS: LevoFLOXacin 750 MG TABLET PO SCH (11:53)
--- NOTE | 2018-02-27 13:13 | REP ---
CT ABDOMEN PELVIS WITHOUT CONTRAST: 02/27/2018. Comparison: 10/30/2013. Clinical history: Right flank pain. Technique: Noncontrast images obtained with coronal and sagittal reconstructions. Findings: CT abdomen: Lung bases show minor curvilinear fibrotic or atelectatic changes in the lingula and medial segment of the right middle lobe. Posteriorly in the lower lung zones. There are no findings. Heart size upper limits normal. There is no pericardial thickening or effusion and no hiatal hernia. Mild hepatomegaly with an 18 cm vertical diameter in the midclavicular line. Left hepatic lobe is also mildly prominent. I do not see definite fatty infiltration, focal hepatic mass nor intrahepatic biliary dilatation. Gallbladder without calcified stone or mass. Spleen is mildly enlarged with vertical diameter up to 14.6 cm. No splenic lesion. Adrenal glands show a 15 mm low density nodule was attenuation value of for capital HU lateral limb on the left. No mass. Small bowel loops in the upper abdomen unremarkable. Abdominal portion of colon shows a few scattered diverticula without diverticulitis. Appendix is seen and normal in caliber without stone or lenin cecal/periappendiceal inflammatory change. The left kidney is without stone, mass, cyst or hydronephrosis. There is no hydroureter on the left. The ureter shows normal course to the bladder without dilatation or stone. The right kidney shows some perinephric edema inferiorly. There is extrarenal pelvis and mild extension proximal ureter which rapidly becomes normal caliber. The ureter shows a normal course to the bladder. I cannot confirm a definite stone but image of 126 axial image 68 coronal suggest a small, possibly 3 mm stone. This is not obstructing. Bone windows show diffuse thoracic endplate spurs and a spondylosis great in the lumbar spine, greatest at L4-5. No compression fracture, destructive lesion. Some facet arthritis seen. Visualized ribs grossly intact. CT pelvis: Sacrum and pelvis show no fracture or focal lesion. SI joints intact. Hip show minimal degenerative change. Distal ureters in the deep pelvis are not abnormally dilated. Questionable tiny stone in the distal right ureter best seen image 126 of axial sequence 201. Bladder only minimally filled. Wall thickness, therefore difficult to cycle director. No mass definite stone or pelvic free fluid. Distal left colon, sigmoid and rectum are unremarkable. Small bowel loops intact. Appendix normal. No ventral or inguinal hernia. Impression: 1. An extrarenal pelvis and proximal hydroureter although mild on the right side with a questionable 3 mm stone in the mid pelvic ureter as described. No renal stones on either side and the left collecting system and ureter normal. 2. Hepatomegaly with a vertical diameter to the liver 18 cm. 3. No abdominal or pelvic adenopathy, ascites, abscess or mass. No hiatal hernia. Electronically Signed by Christ Klein MD 02/27/2018 04:33 P
[2018-02-27] MEDS: IBUPROFEN 800 MG TAB PO PRN ×2 (15:34→21:36)
[2018-02-27 18:04] VITALS: BP 115/61
[2018-02-27] MEDS: traZODone 100 MG TAB PO PRN (21:00)
[2018-02-28] MEDS: LevoFLOXacin 750 MG TABLET PO SCH (06:25)
[2018-02-28 06:36] VITALS: BP 130/75
[2018-02-28] MEDS: IBUPROFEN 800 MG TAB PO PRN ×2 (08:26→19:35)
[2018-02-28] MEDS: SERTRALINE HCL 50 MG TAB PO SCH (08:26)
[2018-02-28] MEDS: ZIPRASIDONE 20MG CAPSULE (GEODON) PO SCH ×2 (08:26→18:01)
[2018-02-28] MEDS: ZINC SULFATE 220 MG CAP PO SCH ×2 (08:26→19:35)
[2018-02-28] MEDS: busPIRone 10 MG TAB PO SCH ×3 (08:26→19:35)
--- NOTE | 2018-02-28 09:15 | IPN ---
DATE OF SERVICE: 02/27/2018 SUBJECTIVE: Patient is seen and examined in the room. Patient was found to have a fever of 101 this morning. Patient started to have elevated temperature in the last 24 hours. During the encounter, patient stated that he is feeling well. He also complained of possible right flank discomfort and headache without visual auras. Besides those symptoms, he could not describe anymore symptoms besides saying "I just don't feel right." Denies any nausea or vomiting. Denied any shortness of breath. Denied any abdominal pain. Denied any urinary symptoms. Denied any diarrhea. Denies any new medication except the PPD test a few days ago. Patient stated since he is not sure whether his symptom is related to PPD but they do occur after the PPD test. He has not had any immunization for many years because he does not believe in them and he recalled that he had a severe reaction from the vaccination in the past, but he could not recall the symptom of the adverse effect. OBJECTIVE: VITAL SIGNS: Temperature 101.2, pulse is 91, respirations 18, blood pressure is 120/66. GENERAL: Obese patient, alert and awake, mild distress. HEENT: Normocephalic, atraumatic. Extraocular motor grossly intact. CARDIOVASCULAR: Positive S1, S2, regular rate. LUNGS: Clear to auscultation bilaterally. ABDOMEN: Soft, nontender, nondistended. Bowel sounds are present. MUSCULOSKELETAL: There is point tenderness in the right flank area reproducible with direct pressure. No radiation noted. No lower extremity edema. LABORATORY DATA: WBC 6.7, hemoglobin 14.4, hematocrit 44.4, platelet count is 229. ESR is 43. Sodium is 139, potassium 4.2, chloride 107, carbon dioxide 24, BUN 9, creatinine 0.8, GFR greater than 60, fasting glucose 162, lactic acid 1.3, C-reactive protein 11.6, magnesium 1.8, calcium 8.5. ASSESSMENT AND PLAN: 1. Acute fever. Etiology unknown at this moment. I have ordered some preliminary studies. Urine may be positive. Patient awaiting for blood culture and urine cultures and patient started on Levaquin for possible urinary tract infection (UTI). Patient's medication regimen are reviewed and all the history reviewed. Patient not elevation since 12/25/2017. The only medication he can recall was the PPD test. He does have possible effects with fevers. At this point, we will just continue monitoring. 2. Suicidal attempt with Klonopin and trazodone overdose. Patient is managed by the psychiatrist on inpatient mental health unit ([facility]). 3. Diabetes. Continue with the consistent carbohydrate diet. 4. Obstructive sleep apnea (ABRAHAM). Noncompliant with continuous positive airway pressure (CPAP) in outpatient complicate care. 5. Morbid obesity. Complicating medical care. 6. History of hypertension. Blood pressure is the satisfactory range. Recommend 2 gram low-salt. 7. Deep venous thrombosis (DVT) prophylaxis. Recommend increase ambulation as tolerated.
[2018-02-28] MEDS: ACETAMINOPHEN TAB 650MG DOSE (2X325MG) PO PRN (10:05)
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
--- NOTE | 2018-02-28 14:08 | IPN ---
DATE OF VISIT: 02/28/2018 SUBJECTIVE: Patient is seen and examined in [facility] today. The patient stated there is no recurrence of the fevers. His right flank pain has also shown improvement. He feels his energy level has been improving, however, he still feels a certain degree of fatigue. He still has some residual right frontal lobe headache, but the headache is also improving. OBJECTIVE: VITAL SIGNS: Temperature is 97.4, pulse is 70, respirations 16, blood pressure is 130/75. GENERAL: Morbidly obese, no signs of acute distress. Patient is awake, alert and oriented. HEENT: Normocephalic, atraumatic. Extraocular motor grossly intact. CARDIOVASCULAR: Positive S1, S2, regular rate. LUNGS: Clear to auscultation bilaterally. ABDOMEN: Soft, nontender, nondistended. Bowel sounds are present. EXTREMITIES: No edema. ASSESSMENT AND PLAN: 1. Acute fever. The patient had a diagnostic workup performed. Blood cultures remain no growth after 24 hours. The patient has a UA showing positive for bacterial, too many to count WBCs and 3+ leukocyte esterase. Empirically patient was started on antibiotic waiting urine culture results. The patient's medication list is also reviewed. Considering onset of the fever, patient was noted to have a PPD test. Patient has a history of adverse effects to the immunization several years ago, but he cannot recall exactly what was the adverse effect. Clinically, the patient's fever has resolved since yesterday. CT abdomen and pelvis was performed. It could be some suspicion for possible 3 mm stone which is not obstructing. 2. Suicidal attempt with Klonopin and trazodone overdose. Patient is managed by the psychiatrist in the inpatient mental health unit ([facility]). 3. Diabetes. Recommend continue with consistent carbohydrate diet. 4. Obstructive sleep apnea (ABRAHAM). Noncompliant with CPAP in the outpatient setting, complicating care. 5. Morbid obesity. Complicating medical care. 6. History of hypertension. Continue to 2 gram low salt diet. Currently blood pressure is the satisfactory range. Patient not on any antihypertensive medications. 7. Deep vein thrombosis (DVT) prophylaxis. Recommend increased ambulation as tolerated.
[2018-02-28 18:00] VITALS: BP 148/78
[2018-02-28] MEDS: traZODone 100 MG TAB PO PRN (21:26)
[2018-02-28] MEDS: hydrOXYzine 50 MG TAB PO PRN (23:00)
[2018-03-01] MEDS: LevoFLOXacin 750 MG TABLET PO SCH (06:18)
[2018-03-01 07:00] VITALS: BP 135/64
[2018-03-01] MEDS: ZINC SULFATE 220 MG CAP PO SCH ×2 (08:04→21:46)
[2018-03-01] MEDS: ZIPRASIDONE 20MG CAPSULE (GEODON) PO SCH ×2 (08:04→17:58)
[2018-03-01] MEDS: busPIRone 10 MG TAB PO SCH ×3 (08:04→21:46)
[2018-03-01] MEDS: SERTRALINE HCL 50 MG TAB PO SCH (08:04)
[2018-03-01] MEDS: IBUPROFEN 800 MG TAB PO PRN ×2 (08:05→21:46)
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
[2018-03-01] MEDS ORDERED: EXCEDRIN MIGRAINE TABLET PO PRN (11:00)
[2018-03-01 18:23] VITALS: BP 140/74
[2018-03-01] MEDS: hydrOXYzine 50 MG TAB PO PRN (18:26)
[2018-03-01] MEDS: traZODone 100 MG TAB PO PRN (21:46)
[2018-03-02] MEDS: LevoFLOXacin 750 MG TABLET PO SCH (06:02)
[2018-03-02 06:34] LABS: HEMATOCRIT 42.6 % (42.0-52.0); MEAN CORPUSCULAR HEMOGLOBIN 26.2 pg (27.0-33.0); MEAN CORPUSCULAR HGB CONC 32.9 g/dl (32.0-36.5); MEAN CORPUSCULAR VOLUME 79.8 fl (80.0-96.0); PLATELET COUNT, AUTOMATED 283 10^3/uL (150-450); RED BLOOD COUNT 5.34 10^6/uL (4.30-6.10); WHITE BLOOD COUNT 7.3 10^3/uL (4.0-10.0)
[2018-03-02 06:58] LABS: BLOOD UREA NITROGEN 14 MG/DL (7-18); CALCIUM LEVEL 8.5 MG/DL (8.5-10.1); CARBON DIOXIDE LEVEL 27 MEQ/L (21-32); CHLORIDE LEVEL 109 MEQ/L (98-107); GLOMERULAR FILTRATION RATE > 60.0 (>60); GLUCOSE, FASTING 133 MG/DL (70-100); POTASSIUM SERUM 4.3 MEQ/L (3.5-5.1); SODIUM LEVEL 143 MEQ/L (136-145)
[2018-03-02 06:59] VITALS: BP 132/84
[2018-03-02] MEDS: ZIPRASIDONE 20MG CAPSULE (GEODON) PO SCH ×2 (08:57→18:08)
[2018-03-02] MEDS: busPIRone 10 MG TAB PO SCH ×3 (08:57→21:04)
[2018-03-02] MEDS: IBUPROFEN 800 MG TAB PO PRN ×2 (08:57→21:04)
[2018-03-02] MEDS: SERTRALINE HCL 50 MG TAB PO SCH (08:57)
[2018-03-02] MEDS: ZINC SULFATE 220 MG CAP PO SCH ×2 (08:57→21:04)
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
[2018-03-02] MEDS ORDERED: SERTRALINE HCL 50 MG TAB PO ONE (10:30)
[2018-03-02 18:36] VITALS: BP 140/70
[2018-03-02] MEDS: traZODone 100 MG TAB PO PRN (21:04)
[2018-03-03] MEDS: LevoFLOXacin 750 MG TABLET PO SCH (05:57)
[2018-03-03 06:39] VITALS: BP 141/89
[2018-03-03] MEDS: ZINC SULFATE 220 MG CAP PO SCH ×2 (08:52→20:50)
[2018-03-03] MEDS: SERTRALINE 100 MG TAB PO SCH (08:52)
[2018-03-03] MEDS: busPIRone 10 MG TAB PO SCH ×3 (08:52→20:50)
[2018-03-03] MEDS: ZIPRASIDONE 20MG CAPSULE (GEODON) PO SCH ×2 (08:52→17:10)
[2018-03-03] MEDS: IBUPROFEN 800 MG TAB PO PRN ×2 (08:53→20:50)
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
[2018-03-03 18:00] VITALS: BP 140/82
[2018-03-03] MEDS: traZODone 100 MG TAB PO PRN (20:50)
[2018-03-04] MEDS: LevoFLOXacin 750 MG TABLET PO SCH (06:47)
[2018-03-04 07:00] VITALS: BP 120/64
[2018-03-04] MEDS: ZIPRASIDONE 20MG CAPSULE (GEODON) PO SCH ×2 (08:16→17:43)
[2018-03-04] MEDS: SERTRALINE 100 MG TAB PO SCH (08:16)
[2018-03-04] MEDS: ZINC SULFATE 220 MG CAP PO SCH ×2 (08:16→21:25)
[2018-03-04] MEDS: IBUPROFEN 800 MG TAB PO PRN ×2 (08:16→21:25)
[2018-03-04] MEDS: busPIRone 10 MG TAB PO SCH ×3 (08:16→21:25)
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
[2018-03-04 18:12] VITALS: BP 145/84
[2018-03-04] MEDS: traZODone 100 MG TAB PO PRN (21:25)
[2018-03-05 06:08] VITALS: BP 124/73
[2018-03-05] MEDS: LevoFLOXacin 750 MG TABLET PO SCH (06:16)
[2018-03-05] MEDS: ZINC SULFATE 220 MG CAP PO SCH ×2 (08:32→20:55)
[2018-03-05] MEDS: ZIPRASIDONE 20MG CAPSULE (GEODON) PO SCH ×2 (08:32→17:59)
[2018-03-05] MEDS: SERTRALINE 100 MG TAB PO SCH (08:32)
[2018-03-05] MEDS: busPIRone 10 MG TAB PO SCH ×3 (08:32→20:55)
[2018-03-05] MEDS: IBUPROFEN 800 MG TAB PO PRN ×2 (08:33→20:55)
[2018-03-05 18:00] VITALS: BP 126/59
[2018-03-05] MEDS: traZODone 100 MG TAB PO PRN (20:55)
[2018-03-05] MEDS: hydrOXYzine 50 MG TAB PO PRN (22:23)
[2018-03-06] MEDS: LevoFLOXacin 750 MG TABLET PO SCH (06:23)
[2018-03-06 06:26] VITALS: BP 125/59
[2018-03-06] MEDS: SERTRALINE 100 MG TAB PO SCH (08:09)
[2018-03-06] MEDS: ZINC SULFATE 220 MG CAP PO SCH ×2 (08:09→21:20)
[2018-03-06] MEDS: busPIRone 10 MG TAB PO SCH ×3 (08:09→21:19)
[2018-03-06] MEDS: IBUPROFEN 800 MG TAB PO PRN ×2 (08:09→21:19)
[2018-03-06] MEDS: ZIPRASIDONE 20MG CAPSULE (GEODON) PO SCH ×2 (08:09→18:12)
[2018-03-06 18:00] VITALS: BP 128/68
[2018-03-06] MEDS: ACETAMINOPHEN TAB 650MG DOSE (2X325MG) PO PRN (18:12)
[2018-03-06] MEDS: traZODone 100 MG TAB PO PRN (21:20)
[2018-03-06] MEDS: hydrOXYzine 50 MG TAB PO PRN (21:46)
[2018-03-07 06:35] VITALS: BP 134/84
[2018-03-07] MEDS: IBUPROFEN 800 MG TAB PO PRN ×2 (08:24→21:00)
[2018-03-07] MEDS: busPIRone 10 MG TAB PO SCH ×3 (08:25→21:00)
[2018-03-07] MEDS: ZINC SULFATE 220 MG CAP PO SCH ×2 (08:25→21:00)
[2018-03-07] MEDS: SERTRALINE 100 MG TAB PO SCH (08:25)
[2018-03-07] MEDS: ZIPRASIDONE 20MG CAPSULE (GEODON) PO SCH (08:25)
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
[2018-03-07] MEDS: PROPRANOLOL 10 MG TAB PO SCH ×3 (11:56→21:00)
[2018-03-07] MEDS: ACETAMINOPHEN TAB 650MG DOSE (2X325MG) PO PRN (15:44)
[2018-03-07] MEDS: ZIPRASIDONE 80 MG CAP (GEODON) PO SCH (17:54)
[2018-03-07 18:28] VITALS: BP 146/86
[2018-03-07] MEDS: traZODone 100 MG TAB PO PRN (21:00)
[2018-03-07] MEDS: hydrOXYzine 50 MG TAB PO PRN (21:00)
[2018-03-08 06:37] VITALS: BP 132/66
[2018-03-08] MEDS: ZIPRASIDONE 80 MG CAP (GEODON) PO SCH ×2 (08:24→18:32)
[2018-03-08] MEDS: SERTRALINE 100 MG TAB PO SCH (08:24)
[2018-03-08] MEDS: IBUPROFEN 800 MG TAB PO PRN ×3 (08:24→22:01)
[2018-03-08] MEDS: PROPRANOLOL 10 MG TAB PO SCH ×3 (08:25→21:58)
[2018-03-08] MEDS: ZINC SULFATE 220 MG CAP PO SCH ×2 (08:25→21:58)
[2018-03-08] MEDS: busPIRone 10 MG TAB PO SCH ×3 (08:25→21:58)
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
[2018-03-08] MEDS: ACETAMINOPHEN TAB 650MG DOSE (2X325MG) PO PRN (13:17)
[2018-03-08] MEDS: hydrOXYzine 50 MG TAB PO PRN (17:12)
[2018-03-08 18:00] VITALS: BP 132/93
[2018-03-08] MEDS: traZODone 100 MG TAB PO PRN (21:57)
--- NOTE | 2018-03-09 00:48 | ECGEPIP ---
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
[2018-03-09 06:40] VITALS: BP 111/61
[2018-03-09] MEDS: PROPRANOLOL 10 MG TAB PO SCH ×3 (08:25→21:13)
[2018-03-09] MEDS: IBUPROFEN 800 MG TAB PO PRN ×3 (08:25→21:17)
[2018-03-09] MEDS: busPIRone 10 MG TAB PO SCH ×3 (08:25→21:13)
[2018-03-09] MEDS: ZINC SULFATE 220 MG CAP PO SCH ×2 (08:25→21:13)
[2018-03-09] MEDS: ZIPRASIDONE 80 MG CAP (GEODON) PO SCH ×2 (08:25→17:29)
[2018-03-09] MEDS: SERTRALINE 100 MG TAB PO SCH (08:25)
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
[2018-03-09] MEDS: BENZTROPINE 1 MG TAB PO SCH ×2 (11:36→21:13)
[2018-03-09] MEDS: ACETAMINOPHEN TAB 650MG DOSE (2X325MG) PO PRN (11:36)
[2018-03-09] MEDS: EUCERIN 120GM CREAM TOP SCH ×2 (15:13→21:15)
[2018-03-09 18:00] VITALS: BP 115/57
[2018-03-09] MEDS: traZODone 100 MG TAB PO PRN (21:17)
[2018-03-10 06:00] VITALS: BP 125/67
[2018-03-10] MEDS: SERTRALINE 100 MG TAB PO SCH (08:26)
[2018-03-10] MEDS: IBUPROFEN 800 MG TAB PO PRN ×2 (08:26→20:21)
[2018-03-10] MEDS: BENZTROPINE 1 MG TAB PO SCH ×2 (08:26→20:20)
[2018-03-10] MEDS: PROPRANOLOL 10 MG TAB PO SCH ×3 (08:26→20:20)
[2018-03-10] MEDS: busPIRone 10 MG TAB PO SCH ×3 (08:26→20:21)
[2018-03-10] MEDS: ZINC SULFATE 220 MG CAP PO SCH ×2 (08:26→20:20)
[2018-03-10] MEDS: ZIPRASIDONE 80 MG CAP (GEODON) PO SCH ×2 (08:26→17:32)
[2018-03-10] MEDS: EUCERIN 120GM CREAM TOP SCH ×3 (09:31→20:17)
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
[2018-03-10] MEDS: ACETAMINOPHEN TAB 650MG DOSE (2X325MG) PO PRN (16:03)
[2018-03-10 18:00] VITALS: BP 126/82
[2018-03-10] MEDS: hydrOXYzine 50 MG TAB PO PRN (20:20)
[2018-03-10] MEDS: traZODone 100 MG TAB PO PRN (20:20)
[2018-03-11 07:37] VITALS: BP 173/87
[2018-03-11] MEDS: BENZTROPINE 1 MG TAB PO SCH ×2 (08:34→21:39)
[2018-03-11] MEDS: busPIRone 10 MG TAB PO SCH ×3 (08:34→21:39)
[2018-03-11] MEDS: ZIPRASIDONE 80 MG CAP (GEODON) PO SCH ×2 (08:34→17:43)
[2018-03-11] MEDS: SERTRALINE 100 MG TAB PO SCH (08:34)
[2018-03-11] MEDS: ZINC SULFATE 220 MG CAP PO SCH ×2 (08:36→21:39)
[2018-03-11] MEDS: EUCERIN 120GM CREAM TOP SCH ×3 (08:36→21:00)
[2018-03-11] MEDS: PROPRANOLOL 10 MG TAB PO SCH ×3 (08:36→21:40)
[2018-03-11] MEDS: IBUPROFEN 800 MG TAB PO PRN ×2 (08:38→21:41)
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
[2018-03-11] MEDS: ACETAMINOPHEN TAB 650MG DOSE (2X325MG) PO PRN (16:04)
[2018-03-11 18:00] VITALS: BP 155/88
[2018-03-11] MEDS: hydrOXYzine 50 MG TAB PO PRN (21:39)
[2018-03-11] MEDS: traZODone 100 MG TAB PO PRN (21:41)
[2018-03-12 06:34] VITALS: BP 134/81
[2018-03-12] MEDS: busPIRone 10 MG TAB PO SCH ×3 (08:32→20:48)
[2018-03-12] MEDS: ZINC SULFATE 220 MG CAP PO SCH ×2 (08:32→20:48)
[2018-03-12] MEDS: IBUPROFEN 800 MG TAB PO PRN ×2 (08:33→20:49)
[2018-03-12] MEDS: SERTRALINE 100 MG TAB PO SCH (08:33)
[2018-03-12] MEDS: PROPRANOLOL 10 MG TAB PO SCH ×3 (08:33→20:47)
[2018-03-12] MEDS: ZIPRASIDONE 80 MG CAP (GEODON) PO SCH ×2 (08:33→17:24)
[2018-03-12] MEDS: BENZTROPINE 1 MG TAB PO SCH ×2 (08:33→20:47)
[2018-03-12] MEDS: hydrOXYzine 50 MG TAB PO PRN ×2 (08:35→20:48)
[2018-03-12] MEDS: EUCERIN 120GM CREAM TOP SCH ×3 (08:51→20:51)
[2018-03-12] MEDS: ACETAMINOPHEN TAB 650MG DOSE (2X325MG) PO PRN (15:28)
[2018-03-12 18:00] VITALS: BP 157/100
--- NOTE | 2018-03-12 20:01 | IPN ---
DATE: 03/12/2018 SUBJECTIVE: Patient seen and examined in the inpatient mental health unit ([facility]) today. Patient denies any new complaints. He stated his headache has been improving. Patient denies any fevers or chills. Denies any urinary symptoms. Denies any right flank pain. Patient stated his energy level is at his baseline. OBJECTIVE: VITAL SIGNS: Temperature is 98.9, pulse is 87, respirations 16, blood pressure 134/81. GENERAL: No sign of acute distress, morbidly obese. Alert, awake, comfortable. HEENT: Normocephalic, atraumatic. Extraocular motor grossly intact. CARDIOVASCULAR: Positive S1, S2, regular rate. LUNGS: Clear to auscultation bilaterally. ABDOMEN: Soft, nontender, nondistended. Bowel sounds present. EXTREMITIES: No edema. ASSESSMENT AND PLAN: 1. Bipolar depression. Patient is currently in the [facility]. Management per psychiatry. 2. History of urinary tract infection status post course of antibiotics. No recurrent fever, chills. Denies any recurrence of right flank pain. Denies any urinary symptoms. 3. History of suicidal attempt with Klonopin and trazodone overdose. Patient in [facility]. 4. Diabetes. Continue consistent-carbohydrate diet. 5. Morbid obesity, complicating care. 6. Obstructive sleep apnea (ABRAHAM), noncompliant with continuous positive airway pressure (CPAP) in the outpatient setting. 7. Hypertension. Continue 2-gram low-salt diet. Currently patient is on propranolol. 8. Deep vein thrombosis (DVT) prophylaxis. Encourage ambulation.
[2018-03-12] MEDS: traZODone 100 MG TAB PO PRN (20:48)
[2018-03-13 06:27] VITALS: BP 130/81
[2018-03-13] MEDS: ZINC SULFATE 220 MG CAP PO SCH ×2 (08:16→20:42)
[2018-03-13] MEDS: SERTRALINE 100 MG TAB PO SCH (08:16)
[2018-03-13] MEDS: busPIRone 10 MG TAB PO SCH ×3 (08:17→20:42)
[2018-03-13] MEDS: IBUPROFEN 800 MG TAB PO PRN ×2 (08:17→20:43)
[2018-03-13] MEDS: BENZTROPINE 1 MG TAB PO SCH ×2 (08:17→20:42)
[2018-03-13] MEDS: PROPRANOLOL 10 MG TAB PO SCH ×3 (08:17→20:44)
[2018-03-13] MEDS: ZIPRASIDONE 80 MG CAP (GEODON) PO SCH ×2 (08:17→17:19)
[2018-03-13] MEDS: EUCERIN 120GM CREAM TOP SCH ×3 (08:18→21:00)
[2018-03-13] MEDS: ACETAMINOPHEN TAB 650MG DOSE (2X325MG) PO PRN (16:40)
[2018-03-13 18:00] VITALS: BP 121/69
[2018-03-13] MEDS: hydrOXYzine 50 MG TAB PO PRN (20:42)
[2018-03-13] MEDS: traZODone 100 MG TAB PO PRN (20:43)
[2018-03-14 06:47] VITALS: BP 160/89
[2018-03-14] MEDS: ZINC SULFATE 220 MG CAP PO SCH ×2 (08:31→20:35)
[2018-03-14] MEDS: ZIPRASIDONE 80 MG CAP (GEODON) PO SCH ×2 (08:31→18:09)
[2018-03-14] MEDS: busPIRone 10 MG TAB PO SCH ×3 (08:31→20:35)
[2018-03-14] MEDS: BENZTROPINE 1 MG TAB PO SCH ×2 (08:31→20:35)
[2018-03-14] MEDS: IBUPROFEN 800 MG TAB PO PRN ×2 (08:32→20:35)
[2018-03-14] MEDS: SERTRALINE 100 MG TAB PO SCH (08:32)
[2018-03-14] MEDS: PROPRANOLOL 10 MG TAB PO SCH ×3 (08:32→20:36)
[2018-03-14] MEDS: EUCERIN 120GM CREAM TOP SCH ×3 (08:33→21:00)
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
[2018-03-14] MEDS ORDERED: SERTRALINE HCL 50 MG TAB PO ONE (09:45)
[2018-03-14 18:00] VITALS: BP 135/60
[2018-03-14] MEDS: traZODone 100 MG TAB PO PRN (20:35)
[2018-03-14] MEDS: hydrOXYzine 50 MG TAB PO PRN (20:35)
[2018-03-15 06:36] VITALS: BP 137/83
[2018-03-15] MEDS: IBUPROFEN 800 MG TAB PO PRN ×2 (08:51→21:12)
[2018-03-15] MEDS: BENZTROPINE 1 MG TAB PO SCH ×2 (08:51→21:10)
[2018-03-15] MEDS: ZIPRASIDONE 80 MG CAP (GEODON) PO SCH ×2 (08:52→17:59)
[2018-03-15] MEDS: EUCERIN 120GM CREAM TOP SCH ×3 (08:52→21:10)
[2018-03-15] MEDS: ZINC SULFATE 220 MG CAP PO SCH ×2 (08:52→21:10)
[2018-03-15] MEDS: SERTRALINE HCL 50 MG TAB PO SCH (08:52)
[2018-03-15] MEDS: busPIRone 10 MG TAB PO SCH ×3 (08:52→21:10)
[2018-03-15] MEDS: PROPRANOLOL 10 MG TAB PO SCH ×3 (08:53→21:11)
[2018-03-15 09:35] VITALS: BP 133/70
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
[2018-03-15] MEDS: ACETAMINOPHEN TAB 650MG DOSE (2X325MG) PO PRN (15:40)
[2018-03-15 18:00] VITALS: BP 126/58
[2018-03-15] MEDS: hydrOXYzine 50 MG TAB PO PRN (21:10)
[2018-03-15] MEDS: traZODone 100 MG TAB PO PRN (21:12)
[2018-03-16 06:11] VITALS: BP 131/67
[2018-03-16] MEDS: ZINC SULFATE 220 MG CAP PO SCH ×2 (08:39→20:47)
[2018-03-16] MEDS: BENZTROPINE 1 MG TAB PO SCH (08:39)
[2018-03-16] MEDS: IBUPROFEN 800 MG TAB PO PRN ×2 (08:40→20:47)
[2018-03-16] MEDS: PROPRANOLOL 10 MG TAB PO SCH ×3 (08:41→20:49)
[2018-03-16] MEDS: ZIPRASIDONE 80 MG CAP (GEODON) PO SCH ×2 (08:41→17:39)
[2018-03-16] MEDS: SERTRALINE HCL 50 MG TAB PO SCH (08:41)
[2018-03-16] MEDS: busPIRone 10 MG TAB PO SCH ×3 (08:42→20:47)
[2018-03-16] MEDS: EUCERIN 120GM CREAM TOP SCH ×3 (08:43→20:50)
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
[2018-03-16 18:00] VITALS: BP 130/75
[2018-03-16] MEDS: traZODone 100 MG TAB PO PRN (20:47)
[2018-03-16] MEDS: BENZTROPINE 2 MG TAB PO SCH (20:47)
[2018-03-16] MEDS: hydrOXYzine 50 MG TAB PO PRN (20:47)
[2018-03-17 06:17] VITALS: BP 137/74
[2018-03-17] MEDS: ZIPRASIDONE 80 MG CAP (GEODON) PO SCH (08:28)
[2018-03-17 08:29] VITALS: BP 137/74
[2018-03-17] MEDS: PROPRANOLOL 10 MG TAB PO SCH (08:29)
[2018-03-17] MEDS: IBUPROFEN 800 MG TAB PO PRN (08:29)
[2018-03-17] MEDS: busPIRone 10 MG TAB PO SCH (08:30)
[2018-03-17] MEDS: SERTRALINE HCL 50 MG TAB PO SCH (08:30)
[2018-03-17] MEDS: EUCERIN 120GM CREAM TOP SCH (08:30)
[2018-03-17] MEDS: BENZTROPINE 2 MG TAB PO SCH (08:30)
[2018-03-17] MEDS: ZINC SULFATE 220 MG CAP PO SCH (08:30)
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
[2018-03-17] MEDS ORDERED: MECLIZINE 25 MG TABLET PO ONE (12:15)
[2018-03-17] MEDS ORDERED: LORazepam 2 MG TAB PO ONE (12:15)
== END 2018-03-17 14:08 | DRG 885 ==
LOC: M PSY 16:25
PROVIDERS: ADMIT Psychiatry & Neurology Psychiatry; ATTEND Psychiatry & Neurology Psychiatry
DX: F31.81 Bipolar II disorder (principal); N39.0 Urinary tract infection, site not specified; F60.81 Narcissistic personality disorder; Z91.19 Patient's noncompliance with other medical treatment and regimen; Z88.0 Allergy status to penicillin; Z88.2 Allergy status to sulfonamides; Z88.8 Allergy status to other drugs, medicaments and biological substances; Z79.899 Other long term (current) drug therapy; E11.9 Type 2 diabetes mellitus without complications; G47.33 Obstructive sleep apnea (adult) (pediatric); I10 Essential (primary) hypertension; E66.01 Morbid (severe) obesity due to excess calories; B96.29 Other Escherichia coli [E. coli] as the cause of diseases classified elsewhere

== ENCOUNTER → 2018-04-22 | Outpatient (CLI) | payer MEDICAID, MEDICARE, SELFPAY ==
[2018-04-22 09:28] LABS: BLOOD UREA NITROGEN 15 MG/DL (7-18); C REACTIVE PROTEIN QUANTITATIV < 0.30 MG/DL (0.00-0.30); CALCIUM LEVEL 9.3 MG/DL (8.5-10.1); CARBON DIOXIDE LEVEL 26 MEQ/L (21-32); CHLORIDE LEVEL 109 MEQ/L (98-107); CPK CREATINE PHOSPHOKINASE 69 U/L (39-308); CREATININE FOR GFR 0.94 MG/DL (0.70-1.30); GLOMERULAR FILTRATION RATE > 60.0 (>60); GLUCOSE, FASTING 158 MG/DL (70-100); LITHIUM LEVEL 0.62 MEQ/L (0.60-1.20); POTASSIUM SERUM 4.3 MEQ/L (3.5-5.1); SODIUM LEVEL 140 MEQ/L (136-145)
[2018-04-22 11:30] LABS: CORTISOL AM 27.8 UG/DL (4.3-22.4)
== END ==
LOC: M LAB 08:17
DX: M25.511 Pain in right shoulder (principal); F32.9 Major depressive disorder, single episode, unspecified

== ENCOUNTER → 2018-05-05 | Outpatient (CLI) | payer MEDICAID, MEDICARE ==
[~2018-05-05] MED LIST changes: -/CELE20CA PO; +CELE1CAP4 PO; +SERT-141 PO; -SERT50TA PO
== END ==
LOC: M OUTALCOH 08:04
PROVIDERS: ATTEND Psychiatry & Neurology Psychiatry
DX: F14.10 Cocaine abuse, uncomplicated (principal)

== ENCOUNTER → 2018-06-07 | Outpatient (RCR) | payer MEDICARE, MEDICAID | LOC: M OUTALCOH 05-17 08:41 | PROVIDERS: ATTEND Psychiatry & Neurology Psychiatry | DX: F14.20 Cocaine dependence, uncomplicated (principal); F17.200 Nicotine dependence, unspecified, uncomplicated; F15.10 Other stimulant abuse, uncomplicated; F10.20 Alcohol dependence, uncomplicated ==

== ENCOUNTER 2018-07-06 09:00 | Outpatient (RCR) | payer MEDICARE, MEDICAID | END 2018-07-08 | LOC: M OUTALCOH 09:00 | PROVIDERS: ATTEND Psychiatry & Neurology Psychiatry | DX: F14.20 Cocaine dependence, uncomplicated (principal); F17.200 Nicotine dependence, unspecified, uncomplicated; F15.10 Other stimulant abuse, uncomplicated; F10.20 Alcohol dependence, uncomplicated ==

== ENCOUNTER 2018-08-04 09:56 | Outpatient (RCR) | payer MEDICAID, MEDICARE, SELFPAY | END 2018-08-07 | LOC: M OUTALCOH 09:56 | PROVIDERS: ATTEND Psychiatry & Neurology Psychiatry | DX: F14.20 Cocaine dependence, uncomplicated (principal); F17.200 Nicotine dependence, unspecified, uncomplicated; F15.10 Other stimulant abuse, uncomplicated; F10.20 Alcohol dependence, uncomplicated | CPT/HCPCS: 90832; H0050 ==

== ENCOUNTER 2018-08-23 09:53 | Outpatient (RCR) | payer MEDICARE, MEDICAID | END 2018-09-07 | LOC: M OUTALCOH 09:53 | PROVIDERS: ATTEND Psychiatry & Neurology Psychiatry | DX: F14.10 Cocaine abuse, uncomplicated (principal); F17.200 Nicotine dependence, unspecified, uncomplicated; F15.11 Other stimulant abuse, in remission; F10.21 Alcohol dependence, in remission | CPT/HCPCS: 90834; H0050 ==

== ENCOUNTER 2018-09-24 18:10 | Emergency (ER) | payer MEDICAID, MEDICARE ==
[~2018-09-24] VITALS: Ht 185.4 cm; Wt 161.7 kg
[2018-09-24] MEDS ORDERED: LITH1TAB PO (18:25)
[2018-09-24] MEDS ORDERED: CLON2TAB7 PO (18:25)
[2018-09-24] MEDS ORDERED: BUSP30TA PO (18:25)
[2018-09-24] MEDS ORDERED: ZINC1TAB2 PO (18:25)
[2018-09-24] MEDS ORDERED: BENZ2TAB5 PO (18:25)
[2018-09-24] MEDS ORDERED: ROZE8TAB16 PO (18:25)
[2018-09-24] MEDS ORDERED: SERT-138 PO (18:25)
[2018-09-24] MEDS ORDERED: ZIPR80CA12 PO (18:25)
[2018-09-24 19:05] LABS: HEMATOCRIT 45.8 % (42.0-52.0); HEMOGLOBIN 15.8 g/dl (13.5-17.5); MEAN CORPUSCULAR HEMOGLOBIN 28.2 pg (27.0-33.0); MEAN CORPUSCULAR HGB CONC 34.5 g/dl (32.0-36.5); MEAN CORPUSCULAR VOLUME 81.6 fl (80.0-96.0); PLATELET COUNT, AUTOMATED 227 10^3/uL (150-450); RED BLOOD COUNT 5.61 10^6/uL (4.30-6.10); WHITE BLOOD COUNT 9.7 10^3/uL (4.0-10.0)
[2018-09-24 19:33] LABS: ACETAMINOPHEN LEVEL < 2.0 UG/ML (10.0-30.0); ALBUMIN 3.7 GM/DL (3.2-5.2); ALT/SGPT 25 U/L (12-78); BILIRUBIN,DIRECT < 0.1 MG/DL (0.0-0.2); BILIRUBIN,TOTAL 0.5 MG/DL (0.2-1.0); BLOOD UREA NITROGEN 12 MG/DL (7-18); CALCIUM LEVEL 8.7 MG/DL (8.5-10.1); CARBON DIOXIDE LEVEL 21 MEQ/L (21-32); CHLORIDE LEVEL 109 MEQ/L (98-107); CREATININE FOR GFR 1.24 MG/DL (0.70-1.30); ETHYL ALCOHOL (ETHANOL) < 0.003 % (0.000-0.010); GLOMERULAR FILTRATION RATE > 60.0 (>60); GLUCOSE, FASTING 144 MG/DL (70-100); POTASSIUM SERUM 4.1 MEQ/L (3.5-5.1); SALICYLATE LEVEL 2.2 MG/DL (5.0-30.0); SODIUM LEVEL 140 MEQ/L (136-145); THYROID STIMULATING HORMONE 0.721 uIU/ML (0.358-3.740); TOTAL PROTEIN 6.9 GM/DL (6.4-8.2)
[2018-09-24 19:50] LABS: AMPHETAMINES LEVEL URINE NEGATIVE (NEGATIVE); BARBITURATES URINE NEGATIVE (NEGATIVE); BENZODIAZEPINES URINE NEGATIVE (NEGATIVE); CANNABINOIDS URINE NEGATIVE (NEGATIVE); COCAINE METABOLITE URINE POSITIVE (NEGATIVE); METHADONE URINE NEGATIVE (NEGATIVE); OPIATES URINE NEGATIVE (NEGATIVE); PHENCYCLIDINE URINE NEGATIVE (NEGATIVE)
[2018-09-24 21:06] LABS: CK-MB VALUE MASS 1.5 NG/ML (<3.6); CPK CREATINE PHOSPHOKINASE 103 U/L (39-308); MB/CK RELATIVE INDEX 1.46 (< OR =4); TROPONIN I < 0.02 NG/ML (< 0.10)
[2018-09-25 00:54] VITALS: BP 129/78
--- NOTE | 2018-09-25 06:35 | ECGEPIP ---
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
== END 2018-09-25 00:56 ==
LOC: M ED 18:10
DX: R45.851 Suicidal ideations (principal); I45.4 Nonspecific intraventricular block; F32.9 Major depressive disorder, single episode, unspecified; Z72.0 Tobacco use; F14.10 Cocaine abuse, uncomplicated; Z79.899 Other long term (current) drug therapy; Z88.0 Allergy status to penicillin; Z88.2 Allergy status to sulfonamides; Z88.8 Allergy status to other drugs, medicaments and biological substances
CPT/HCPCS: 80048; 80076; 80307; 82550; 82553; 84443; 84484; 85027; 93005; 99284; G0480

== ENCOUNTER → 2018-10-19 | Outpatient (CLI) | payer MEDICARE ==
[~2018-10-19] MED LIST changes: +BENZ2TAB5 PO; +BUSP30TA PO; +LITH1TAB PO; +ROZE8TAB16 PO; +ZINC1TAB2 PO; +ZIPR80CA12 PO
== END ==
LOC: M OUTALCOH 13:07
PROVIDERS: ATTEND Psychiatry & Neurology Psychiatry
DX: Z13.39 Encounter for screening examination for other mental health and behavioral disorders (principal); F15.20 Other stimulant dependence, uncomplicated

== ENCOUNTER → 2018-10-31 | Outpatient (CLI) | payer MEDICARE ==
[~2018-10-31] MED LIST changes: +MECL1TAB31 PO; -SIMV40TA2 PO; +SIMV40TA20 PO; -TRAZ-163 PO; +TRAZ-257 PO
[2018-10-31 14:27] LABS: ALBUMIN 3.8 GM/DL (3.2-5.2); ALT/SGPT 23 U/L (12-78); BILIRUBIN,DIRECT < 0.1 MG/DL (0.0-0.2); BILIRUBIN,TOTAL 0.4 MG/DL (0.2-1.0); BLOOD UREA NITROGEN 11 MG/DL (7-18); CALCIUM LEVEL 9.4 MG/DL (8.5-10.1); CARBON DIOXIDE LEVEL 25 MEQ/L (21-32); CHLORIDE LEVEL 108 MEQ/L (98-107); CHOLESTEROL LEVEL 287 MG/DL (<200); CREATININE FOR GFR 0.95 MG/DL (0.70-1.30); GLOMERULAR FILTRATION RATE > 60.0 (>60); GLUCOSE, FASTING 115 MG/DL (70-100); HDL CHOLESTEROL 41 MG/DL (>40); LDL CHOLESTEROL 172 MG/DL (<100); LITHIUM LEVEL 0.52 MEQ/L (0.60-1.20); NON-HDL-C 246 MG/DL; POTASSIUM SERUM 4.4 MEQ/L (3.5-5.1); SODIUM LEVEL 142 MEQ/L (136-145); TOTAL PROTEIN 7.2 GM/DL (6.4-8.2); TRIGLYCERIDES LEVEL 370 MG/DL (<150)
== END ==
LOC: M LAB 12:10
PROVIDERS: ATTEND Psychiatry & Neurology Psychiatry
DX: F31.9 Bipolar disorder, unspecified (principal)

== ENCOUNTER → 2018-10-31 | Outpatient (CLI) | payer MEDICARE ==
[2018-10-31 13:48] LABS: MALB URINE SIEMENS 96.6 MG/L; MAU/CREAT RATIO 77.9 MCG/MG (0.0-30.0)
[2018-10-31 14:15] LABS: HEMOGLOBIN A1c 5.7 %
[2018-10-31 14:25] LABS: CHOLESTEROL RISK RATIO 6.864 (<5)
== END ==
LOC: M LAB 12:06
PROVIDERS: ATTEND Hospitalist
DX: E11.9 Type 2 diabetes mellitus without complications (principal); F31.9 Bipolar disorder, unspecified

== ENCOUNTER 2018-11-03 11:00 | Outpatient (RCR) | payer MEDICARE ==
[~2018-11-03 11:00] MED LIST changes: -MECL1TAB31 PO; +SIMV40TA2 PO; -SIMV40TA20 PO; +TRAZ-163 PO; -TRAZ-257 PO
== END 2018-11-07 ==
LOC: M OUTALCOH 11:00
PROVIDERS: ATTEND Psychiatry & Neurology Psychiatry
DX: F14.10 Cocaine abuse, uncomplicated (principal); F17.200 Nicotine dependence, unspecified, uncomplicated

== ENCOUNTER → 2018-11-25 | Outpatient (CLI) | payer MEDICARE ==
--- NOTE | 2018-11-25 17:15 | ECGEPIP ---
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
== END ==
LOC: M LAB 15:05
PROVIDERS: ATTEND Psychiatry & Neurology Psychiatry
DX: F31.81 Bipolar II disorder (principal)

== ENCOUNTER 2018-12-07 16:00 | Outpatient (RCR) | payer MEDICARE | END 2018-12-08 | LOC: M OUTALCOH 16:00 | PROVIDERS: ATTEND Psychiatry & Neurology Psychiatry | DX: F14.10 Cocaine abuse, uncomplicated (principal); F17.200 Nicotine dependence, unspecified, uncomplicated ==

== ENCOUNTER → 2018-12-22 | Outpatient (REF) | payer MEDICARE | LOC: M SFHCPLAZ 13:56 | DX: Z72.52 High risk homosexual behavior (principal); Z53.8 Procedure and treatment not carried out for other reasons ==

== ENCOUNTER 2019-01-02 14:00 | Outpatient (RCR) | payer MEDICARE ==
[~2019-01-02 14:00] MED LIST changes: -SIMV40TA2 PO; +SIMV40TA20 PO
== END 2019-01-07 ==
LOC: M OUTALCOH 14:00
PROVIDERS: ATTEND Psychiatry & Neurology Psychiatry
DX: F14.10 Cocaine abuse, uncomplicated (principal)
CPT/HCPCS: 90832; 90853; H0050

== ENCOUNTER 2019-02-02 11:14 | Outpatient (RCR) | payer MEDICARE, MEDICAID | END 2019-02-07 | LOC: M OUTALCOH 11:14 | PROVIDERS: ATTEND Psychiatry & Neurology Psychiatry | DX: F14.10 Cocaine abuse, uncomplicated (principal); F17.200 Nicotine dependence, unspecified, uncomplicated | CPT/HCPCS: 90832; H0050 ==

== ENCOUNTER 2019-03-07 10:00 | Outpatient (RCR) | payer MEDICARE, MEDICAID ==
[~2019-03-07 10:00] MED LIST changes: +MECL1TAB31 PO; -TRAZ-163 PO; +TRAZ-257 PO
== END 2019-03-10 ==
LOC: M OUTALCOH 10:00
PROVIDERS: ATTEND Psychiatry & Neurology Psychiatry
DX: F14.10 Cocaine abuse, uncomplicated (principal)
CPT/HCPCS: 90832; 90834; H0050

== ENCOUNTER 2019-03-16 15:49 | Outpatient (RCR) | payer MEDICAID, MEDICARE ==
[2019-03-27] MEDS ORDERED: TRAZ150T90 PO (11:21)
[2019-03-27] MEDS ORDERED: CARB200T98 PO ×2 (11:21→12:32)
[2019-03-27] MEDS ORDERED: ZINC220C7 PO (11:57)
[2019-03-27] MEDS ORDERED: TEGR200T PO (12:28)
[2019-03-27] MEDS ORDERED: LITH600C PO (12:32)
[2019-03-27] MEDS ORDERED: MECL1TAB31 PO (13:51)
[2019-03-27] MEDS ORDERED: CLOTCRE3 TOP (13:51)
== END 2019-04-08 ==
LOC: M OUTALCOH 15:49
PROVIDERS: ATTEND Psychiatry & Neurology Addiction Medicine
DX: F14.10 Cocaine abuse, uncomplicated (principal); F17.200 Nicotine dependence, unspecified, uncomplicated

== ENCOUNTER 2019-03-21 13:22 | Emergency (ER) | payer MEDICAID, MEDICARE ==
[~2019-03-21] VITALS: Ht 188 cm; Wt 159.1 kg
[2019-03-21 13:24] VITALS: BP 134/73
== END 2019-03-21 14:56 | disposition left against medical advice (07) ==
LOC: M ED 13:22
DX: Z53.21 Procedure and treatment not carried out due to patient leaving prior to being seen by health care provider (principal)

== ENCOUNTER 2019-03-27 10:34 | Emergency (ER) | payer MEDICARE ==
[~2019-03-27] VITALS: Ht 185.4 cm; Wt 168.7 kg
[2019-03-27] MEDS ORDERED: TRAZ150T90 PO (11:21)
[2019-03-27] MEDS ORDERED: CARB200T98 PO ×2 (11:21→12:32)
[2019-03-27] MEDS ORDERED: ZINC220C7 PO (11:57)
[2019-03-27] MEDS ORDERED: busPIRone 10 MG TAB PO ONE (12:00)
[2019-03-27] MEDS ORDERED: carBAMazepine 200 MG TAB PO ONE (12:00)
[2019-03-27] MEDS ORDERED: LITHIUM CARBONATE 600 MG CAP PO ONE (12:00)
[2019-03-27] MEDS ORDERED: SERTRALINE 100 MG TAB PO ONE (12:00)
[2019-03-27 12:17] LABS: BASO # 0.1 10^3/uL (0.0-0.2); BASO % 1.1 % (0.0-1.0); EOS # 0.2 10^3/uL (0.0-0.5); EOS % 2.8 % (0.0-3.0); HEMATOCRIT 49.6 % (42.0-52.0); HEMOGLOBIN 15.9 g/dl (13.5-17.5); LYMPH # 2.2 10^3/uL (1.5-5.0); LYMPH % 26.6 % (24.0-44.0); MEAN CORPUSCULAR HEMOGLOBIN 26.6 pg (27.0-33.0); MEAN CORPUSCULAR HGB CONC 32.1 g/dl (32.0-36.5); MEAN CORPUSCULAR VOLUME 82.9 fl (80.0-96.0); MONO # 0.5 10^3/uL (0.0-0.8); MONO % 5.6 % (0.0-5.0); NEUTROPHILS # 5.2 10^3/uL (1.5-8.5); NEUTROPHILS % 63.3 % (36.0-66.0); PLATELET COUNT, AUTOMATED 240 10^3/uL (150-450); RED BLOOD COUNT 5.98 10^6/uL (4.30-6.10); WHITE BLOOD COUNT 8.2 10^3/uL (4.0-10.0)
[2019-03-27] MEDS ORDERED: TEGR200T PO (12:28)
[2019-03-27] MEDS ORDERED: LITH600C PO (12:32)
[2019-03-27 12:57] LABS: ACETAMINOPHEN LEVEL < 2.0 UG/ML (10.0-30.0); ALBUMIN 4.2 GM/DL (3.2-5.2); ALT/SGPT 35 U/L (12-78); BILIRUBIN,DIRECT < 0.1 MG/DL (0.0-0.2); BILIRUBIN,TOTAL 0.2 MG/DL (0.2-1.0); BLOOD UREA NITROGEN 12 MG/DL (7-18); CALCIUM LEVEL 8.9 MG/DL (8.5-10.1); CARBAMAZEPINE (TEGRETOL) LEVEL 2.7 UG/ML (4.0-10.0); CARBON DIOXIDE LEVEL 24 MEQ/L (21-32); CHLORIDE LEVEL 112 MEQ/L (98-107); CREATININE FOR GFR 0.74 MG/DL (0.70-1.30); GLOMERULAR FILTRATION RATE > 60.0 (>60); GLUCOSE, FASTING 143 MG/DL (70-100); POTASSIUM SERUM 4.1 MEQ/L (3.5-5.1); SALICYLATE LEVEL 2.7 MG/DL (5.0-30.0); SODIUM LEVEL 142 MEQ/L (136-145); TOTAL PROTEIN 7.6 GM/DL (6.4-8.2)
[2019-03-27] MEDS ORDERED: carBAMazepine XR 200 MG TAB PO ONE (13:15)
[2019-03-27] MEDS ORDERED: ACETAMINOPHEN TAB 650MG DOSE (2X325MG) PO ONE (13:30)
[2019-03-27] MEDS ORDERED: MECL1TAB31 PO (13:51)
[2019-03-27] MEDS ORDERED: CLOTCRE3 TOP (13:51)
[2019-03-27 13:59] VITALS: BP 149/81
== END 2019-03-27 14:15 | disposition home or self-care (01) ==
LOC: M ED 10:34
DX: B35.4 Tinea corporis (principal); H81.10 Benign paroxysmal vertigo, unspecified ear; E11.9 Type 2 diabetes mellitus without complications; E78.5 Hyperlipidemia, unspecified; F17.200 Nicotine dependence, unspecified, uncomplicated; F14.10 Cocaine abuse, uncomplicated; Z79.899 Other long term (current) drug therapy; Z88.0 Allergy status to penicillin; Z88.2 Allergy status to sulfonamides; Z88.8 Allergy status to other drugs, medicaments and biological substances
CPT/HCPCS: 80048; 80076; 80156; 80178; 85025; 99283; G0480

== ENCOUNTER → 2019-04-04 | Outpatient (CLI) | payer MEDICARE, MEDICAID ==
[~2019-04-04] MED LIST changes: +CARB200T98 PO; +CLOTCRE3 TOP; +TEGR200T PO; +TRAZ150T90 PO; +ZINC220C7 PO
[2019-04-04 17:30] LABS: ALBUMIN 3.8 GM/DL (3.2-5.2); ALT/SGPT 28 U/L (12-78); BILIRUBIN,TOTAL 0.2 MG/DL (0.2-1.0); BLOOD UREA NITROGEN 10 MG/DL (7-18); CARBON DIOXIDE LEVEL 25 MEQ/L (21-32); CHLORIDE LEVEL 110 MEQ/L (98-107); CREATININE FOR GFR 0.89 MG/DL (0.70-1.30); GLOMERULAR FILTRATION RATE > 60.0 (>60); GLUCOSE, FASTING 201 MG/DL (70-100); SODIUM LEVEL 141 MEQ/L (136-145); TOTAL PROTEIN 6.9 GM/DL (6.4-8.2)
[2019-04-04 17:33] LABS: CREATININE, URINE 80.8 MG/DL; MAU/CREAT RATIO 181.9 MCG/MG (0.0-30.0)
[2019-04-05 12:08] LABS: HEPATITIS C VIRUS ABY INDEX < 0.0 INDEX (<0.8)
[2019-04-05 12:09] LABS: HIV 1&2 SCREEN CENTAUR NEGATIVE (NEGATIVE)
== END ==
LOC: M WUC 12:00
PROVIDERS: ATTEND Hospitalist
DX: R80.9 Proteinuria, unspecified (principal); Z72.52 High risk homosexual behavior

== ENCOUNTER → 2019-11-06 | Outpatient (CLI) | payer MEDICARE ==
--- NOTE | 2019-11-15 09:57 | REP ---
BILATERAL KNEE SERIES HISTORY: Pain. TECHNIQUE: Five views of bilateral knees performed. FINDINGS: On the left no fracture or dislocation is seen. A small linear calcification along the medial femoral condyle is probably a small ligamentous calcification. There is a small nonspecific calcification within the anterior joint on the lateral view 4 mm in diameter, which could represent a joint body or a ligamentous calcification. I do not see a significant joint effusion. On the right, there is no fracture or dislocation. There is mild medial joint space narrowing with subchondral sclerosis and spurring. A rounded calcification is seen along the posterior margin of the medial femoral condyle superior aspect measuring about 1.5 cm in diameter. This could be related to the tendon for the medial gastrocnemius. Lateral view is somewhat oblique limiting evaluation for joint effusion. IMPRESSION: There appears to be a small ligamentous calcification along the left medial femoral condyle and a 4-mm calcification is seen in the anterior joint, representing a joint body or ligamentous calcification. On the right, there are mild degenerative changes. There is a rounded calcification along the posterior aspect of the medial femoral condyle, which may be related to the medial gastrocnemius tendon. MTDD
== END ==
LOC: M RAD 15:10
PROVIDERS: ATTEND Hospitalist
DX: M25.561 Pain in right knee (principal); M25.562 Pain in left knee

== ENCOUNTER → 2020-07-15 | Outpatient (CLI) | payer MEDICARE ==
[~2020-07-15] MED LIST changes: +GABA-282 PO; -GABA-843 PO
--- NOTE | 2020-07-15 16:32 | REP ---
INDICATION: VARICOSE VEINS. COMPARISON: None. TECHNIQUE: Multiple ultrasonographic images of the deep venous structures of the bilateral lower extremity were obtained from the inguinal ligament to the ankle. Venous compression techniques, color doppler imaging, and augmentation techniques were also obtained where appropriate. As per the ACR guidelines the anterior tibial vein can not be effectively evaluated. Only compression techniques in the calf on the peroneal and posterior tibial veins was attempted/performed. Bilateral lower extremity reflux study was also performed. FINDINGS: There is no abnormal echogenic material seen within any of the visualized deep venous structures that would suggest acute thrombosis. Coaptation is unremarkable throughout. Doppler interrogation shows an expected response to respiratory variability and augmentation in the thigh. Compression techniques in the calf showed no abnormality or were unobtainable. The color flow images show what appears to be a normal vascular pattern throughout the thigh. On the right: A common femoral vein was visualized. No reflux was identified. No anterior accessory greater saphenous vein was seen. Reflux was seen in the greater saphenous vein at the saphenous femoral junction of 0.9 seconds duration the AP dimension of which measured 12.1 mm with multiple collaterals identified. Reflux was seen in the greater saphenous vein at the mid thigh of 0.7 seconds duration the AP dimension of which measured 7.1 mm. No reflux was seen in the greater saphenous vein at the knee the AP dimension of which measured 4.5 mm. No reflux was seen in any portion of the femoral vein No reflux was seen in the popliteal vein No reflux was seen in the lesser saphenous vein. On the left: A common femoral vein was visualized without reflux. An anterior accessory greater saphenous vein was not visualized. No reflux was seen in the greater saphenous vein at the saphenous femoral junction the AP dimension of which measured 2.6 mm. No reflux was seen in the greater saphenous vein at the mid thigh level the AP dimension of which measured 5.5 mm. No reflux was seen in the greater saphenous vein at the knee the AP dimension of which measured 5.2 mm No reflux was seen in any portion of the femoral vein. No reflux was seen in the popliteal vein. No reflux was seen in the lesser saphenous vein. IMPRESSION: There is no ultrasonographic evidence of deep venous thrombosis involving any of the visualized deep venous structures of the bilateral lower extremity as described above.. Bilateral lower extremity deep vein reflux study as described above. <Electronically signed by Jensen Sandoval > 07/15/20 [id number]
== END ==
LOC: M RAD 12:47
PROVIDERS: ATTEND Hospitalist
DX: I83.893 Varicose veins of bilateral lower extremities with other complications (principal)

== ENCOUNTER → 2020-12-17 | Outpatient (CLI) | payer MEDICARE ==
[~2020-12-17] MED LIST changes: +METH-1177 PO; -METH10TA2 PO
[2020-12-17 14:36] LABS: HEMATOCRIT 49.7 % (42.0-52.0); HEMOGLOBIN 16.2 g/dl (13.5-17.5); MEAN CORPUSCULAR HGB CONC 32.6 g/dl (32.0-36.5); MEAN CORPUSCULAR VOLUME 82.7 fl (80.0-96.0); PLATELET COUNT, AUTOMATED 210 10^3/uL (150-450); RED BLOOD COUNT 6.01 10^6/uL (4.30-6.10); WHITE BLOOD COUNT 8.9 10^3/uL (4.0-10.0)
[2020-12-17 14:57] LABS: ALBUMIN 3.7 GM/DL (3.2-5.2); ALT/SGPT 33 U/L (12-78); BILIRUBIN,TOTAL 0.4 MG/DL (0.2-1.0); BLOOD UREA NITROGEN 10 MG/DL (7-18); CALCIUM LEVEL 9.5 MG/DL (8.5-10.1); CARBON DIOXIDE LEVEL 31 MEQ/L (21-32); CHLORIDE LEVEL 104 MEQ/L (98-107); CHOLESTEROL LEVEL 219 MG/DL (<200); CHOLESTEROL RISK RATIO 5.475 (<5); CREATININE FOR GFR 0.86 MG/DL (0.70-1.30); FREE T4 1.14 NG/DL (0.76-1.46); GLOMERULAR FILTRATION RATE > 60.0 (>60); GLUCOSE, FASTING 232 MG/DL (70-100); HDL CHOLESTEROL 40 MG/DL (>40); LDL CHOLESTEROL 122 MG/DL (<100); NON-HDL-C 179 MG/DL; POTASSIUM SERUM 4.5 MEQ/L (3.5-5.1); SODIUM LEVEL 138 MEQ/L (136-145); TOTAL PROTEIN 7.1 GM/DL (6.4-8.2); TRIGLYCERIDES LEVEL 287 MG/DL (<150); VITAMIN B12 LEVEL 437 PG/ML (247-911)
[2020-12-17 15:36] LABS: MAU/CREAT RATIO 540.5 MCG/MG (0.0-30.0)
[2020-12-17 16:15] LABS: HEMOGLOBIN A1c 9.7 %
== END ==
LOC: M PLALAB 10:27
PROVIDERS: ATTEND Student in an Organized Health Care Education/Training Program
DX: D51.9 Vitamin B12 deficiency anemia, unspecified (principal); E66.01 Morbid (severe) obesity due to excess calories; E60 Dietary zinc deficiency; E78.2 Mixed hyperlipidemia; E03.9 Hypothyroidism, unspecified; R80.9 Proteinuria, unspecified

== ENCOUNTER → 2022-04-28 | Outpatient (CLI) | payer MEDICARE ==
[2022-04-28 16:02] LABS: HEMOGLOBIN A1c 6.3 % (4.0-6.0)
[2022-04-28 16:21] LABS: ALBUMIN 3.6 G/DL (3.2-5.2); ALKALINE PHOSPHATASE 101 U/L (46-116); ALT/SGPT 19 U/L (7.0-40); AST/SGOT 14 U/L (<34); BILIRUBIN,TOTAL 0.4 MG/DL (0.3-1.2); BLOOD UREA NITROGEN 14 MG/DL (9-23); CALCIUM LEVEL 9.4 MG/DL (8.5-10.1); CARBON DIOXIDE LEVEL 23 MMOL/L (20-31); CHLORIDE LEVEL 107 MMOL/L (98-107); CHOLESTEROL LEVEL 215 MG/DL (<200); CHOLESTEROL RISK RATIO 5.56 (<5); CREATININE FOR GFR 0.76 MG/DL (0.70-1.30); GLOMERULAR FILTRATION RATE > 60.0 (>60); GLUCOSE, FASTING 220 MG/DL (60-100); HDL CHOLESTEROL 38.6 MG/DL (>40); LDL CHOLESTEROL 119.6 MG/DL (<100); NON-HDL-C 176.4 MG/DL; POTASSIUM SERUM 4.5 MMOL/L (3.5-5.1); SODIUM LEVEL 140 MMOL/L (136-145); TRIGLYCERIDES LEVEL 284 MG/DL (<150)
[2022-04-28 16:22] LABS: THYROID STIMULATING HORMONE 1.171 uIU/ML (0.55-4.78)
[2022-04-28 16:23] LABS: FREE T4 1.38 NG/DL (0.89-1.76)
[2022-04-28 16:24] LABS: FOLATE 7.22 NG/ML (>5.4); LITHIUM LEVEL 0.18 MMOL/L (0.60-1.20); VITAMIN B12 LEVEL 320 PG/ML (211-911)
[2022-04-28 16:25] LABS: CREATININE, URINE 237.3 MG/DL; MAU/CREAT RATIO 157.1 MCG/MG (0.0-30.0)
[2022-04-28 16:47] LABS: HIV 1&2 SCREEN CENTAUR NEGATIVE (NEGATIVE)
== END ==
LOC: M PLALAB 13:32
PROVIDERS: ATTEND Student in an Organized Health Care Education/Training Program
DX: E53.8 Deficiency of other specified B group vitamins (principal)

== ENCOUNTER 2022-09-17 18:53 | Emergency (ER) | payer MEDICARE ==
[~2022-09-17 18:53] MED LIST changes: +BENZ2TAB48 PO; -BENZ2TAB5 PO
[2022-09-17 18:54] VITALS: BP 164/90; TEMP 97.9; O2SAT 97
== END 2022-09-17 21:39 | disposition left against medical advice (07) ==
LOC: M ED 18:53
DX: Z53.21 Procedure and treatment not carried out due to patient leaving prior to being seen by health care provider (principal)

== ENCOUNTER 2023-03-06 01:10 | Observation (INO) | payer MEDICARE ==
[2023-03-06] VITALS (7 sets, daily range): BP systolic 121–140; BP diastolic 60–83; TEMP 97.3–98.1; O2SAT 93–100
[~2023-03-06] VITALS: Ht 185.4 cm; Wt 139.0 kg
[~2023-03-06 01:10] MED LIST changes: +MECL-209 PO; -MECL1TAB31 PO
[2023-03-06] MEDS ORDERED: MORPHINE 2 MG/ML 1ML VIAL IV ONE (02:00)
[2023-03-06] MEDS ORDERED: NS 3,950 ML in IV 1 EA IV ONE (02:00)
[2023-03-06] MEDS ORDERED: ONDANSETRON 4MG 2ML VIAL IV ONE (02:00)
[2023-03-06 02:31] LABS: VENOUS BASE EXCESS 0.3 (-2.0-2.0); VENOUS HCO3 22.6 MMOL/L (23.0-27.0); VENOUS O2 SATURATION 93.5 % (60.0-80.0); VENOUS PARTIAL PRESSURE CO2 30.7 mmHg (38.0-50.0); VENOUS PARTIAL PRESSURE O2 59.4 mmHg (30.0-50.0); VENOUS PH 7.485 UNITS (7.330-7.430); VENOUS STANDARD HCO3 24.6 MMOL/L; VENOUS TOTAL CO2 23.6 MMOL/L (24.0-28.0)
[2023-03-06 02:39] LABS: BASO # 0.1 10^3/uL (0.0-0.2); BASO % 0.5 % (0.0-1.0); EOS # 0.1 10^3/uL (0.0-0.5); EOS % 0.9 % (0.0-3.0); HEMATOCRIT 43.6 % (42.0-52.0); HEMOGLOBIN 14.4 g/dl (13.5-17.5); LYMPH # 3.3 10^3/uL (1.5-5.0); LYMPH % 28.1 % (24.0-44.0); MEAN CORPUSCULAR HEMOGLOBIN 26.4 pg (27.0-33.0); MONO # 0.7 10^3/uL (0.0-0.8); MONO % 5.7 % (2.0-8.0); NEUTROPHILS # 7.4 10^3/uL (1.5-8.5); NEUTROPHILS % 62.3 % (36.0-66.0); PLATELET COUNT, AUTOMATED 425 10^3/uL (150-450); RED BLOOD COUNT 5.45 10^6/uL (4.30-6.10); WHITE BLOOD COUNT 11.9 10^3/uL (4.0-10.0)
[2023-03-06 02:51] LABS: INR 1.14; PROTHROMBIN TIME 14.3 SECONDS (12.5-14.5)
[2023-03-06 03:06] LABS: ALBUMIN 2.6 G/DL (3.2-5.2); ALKALINE PHOSPHATASE 99 U/L (46-116); ALT/SGPT 29 U/L (7.0-40); AMYLASE 79 U/L (30-118); AST/SGOT 18 U/L (<34); BILIRUBIN,DIRECT 0.1 MG/DL (<0.4); BILIRUBIN,TOTAL 0.5 MG/DL (0.3-1.2); BLOOD UREA NITROGEN 13 MG/DL (9-23); CALCIUM LEVEL 9.2 MG/DL (8.5-10.1); CARBON DIOXIDE LEVEL 23 MMOL/L (20-31); CHLORIDE LEVEL 103 MMOL/L (98-107); CREATININE FOR GFR 0.71 MG/DL (0.70-1.30); GLOMERULAR FILTRATION RATE > 60.0 (>60); GLUCOSE, FASTING 295 MG/DL (60-100); POTASSIUM SERUM 4.1 MMOL/L (3.5-5.1); SODIUM LEVEL 133 MMOL/L (136-145); TOTAL PROTEIN 7.1 G/DL (5.7-8.2)
[2023-03-06 03:34] LABS: PROCALCITONIN 0.77 ng/ml
[2023-03-06] MEDS ORDERED: ISOVUE-370 76% 100ML VIAL As Ordered ONE (04:43)
[2023-03-06] MEDS ORDERED: NS 1,000 ML IV ONE ×2 (04:55)
[2023-03-06] MEDS ORDERED: AZTREONAM 2 GM in D5W MINI-BAG PLUS 50 ML IV SCH (06:15)
[2023-03-06] MEDS ORDERED: HOME MED LIST COMPLETE! XX SCH (06:35)
[2023-03-06] MEDS ORDERED: OXYMETAZOLINE 0.05% NASAL SPRAY (AFRIN) As Ordered ONE (08:00)
[2023-03-06] MEDS ORDERED: CIPRODEX OTIC SUSP 7.5ML As Ordered ONE (08:00)
[2023-03-06] MEDS ORDERED: VANCOMYCIN HCL 1,000 MG, VIAL MATE ADAPTER 1 EACH in D5W 250 ML IV SCH (08:45)
[2023-03-06] MEDS: CIPRODEX OTIC SUSP 7.5ML AS SCH ×2 (09:00→21:57)
[2023-03-06] MEDS: SODIUM CHLORIDE NASAL 0.65% SPRAY BTL (OCEAN) SCH ×2 (09:00→21:00)
[2023-03-06] MEDS ORDERED: SEVOFLURANE INHAL SOLN 250 ML BTL As Ordered ONE (09:01)
[2023-03-06] MEDS ORDERED: METOCLOPRAMIDE INJ 10MG/2ML VIAL As Ordered ONE (09:01)
[2023-03-06] MEDS ORDERED: MIDAZOLAM INJ 2MG/2ML VIAL As Ordered ONE (09:01)
[2023-03-06] MEDS ORDERED: DESFLURANE 240 ML INHALANT As Ordered ONE (09:01)
[2023-03-06] MEDS ORDERED: ONDANSETRON 4MG 2ML VIAL As Ordered ONE (09:01)
[2023-03-06] MEDS ORDERED: ACETAMINOPHEN 1000MG 100ML IV BAG As Ordered ONE (09:01)
[2023-03-06] MEDS ORDERED: LIDOCAINE 2% 100MG/5ML SDV (FOR ANES.) As Ordered ONE (09:01)
[2023-03-06] MEDS ORDERED: dexmedeTOMIDine (4MCG/ML)200MCG/50ML BTL (PRECEDEX) As Ordered ONE (09:01)
[2023-03-06] MEDS ORDERED: propofoL 200 MG/20 ML VIAL As Ordered ONE (09:01)
[2023-03-06] MEDS ORDERED: fentaNYL 100 MCG/2 ML INJECTION As Ordered ONE (09:01)
[2023-03-06] MEDS ORDERED: diphenhydrAMINE 50MG/ML VIAL IV PRN (09:25)
[2023-03-06] MEDS ORDERED: METOCLOPRAMIDE INJ 10MG/2ML VIAL IV PRN (09:25)
[2023-03-06] MEDS ORDERED: MEPERIDINE 25 MG/ML 1ML VIAL IV PRN (09:25)
[2023-03-06] MEDS ORDERED: ONDANSETRON 4MG 2ML VIAL IV PRN (09:25)
[2023-03-06] MEDS ORDERED: fentaNYL 100 MCG/2 ML INJECTION IV PRN (09:25)
[2023-03-06 09:36] LABS: HEMOGLOBIN A1c 7.1 % (4.0-6.0)
[2023-03-06 09:55] LABS: HIV 1&2 SCREEN NEGATIVE (NEGATIVE)
[2023-03-06 10:03] LABS: HEPATITIS C VIRUS ABY INDEX 0.03 INDEX (<0.8)
[2023-03-06 10:04] LABS: HEPATITIS B CORE ANTIBODY IGM NEGATIVE (NEGATIVE)
[2023-03-06] MEDS ORDERED: VANCOMYCIN HCL 1,000 MG, VIAL MATE ADAPTER 1 EACH in D5W 250 ML IV ONE ×2 (11:00→12:00)
[2023-03-06] MEDS: LR 1,000 ML IV SCH ×2 (11:29→16:35)
[2023-03-06] MEDS ORDERED: HALOPERIDOL 5MG/ML 1ML VIAL IM STA (12:22)
[2023-03-06] MEDS ORDERED: LORazepam 2 MG/ML 1ML VIAL IM STA (12:31)
[2023-03-06 14:00] LABS: HEPATITIS B CORE ANTIBODY IGM NEGATIVE (NEGATIVE); HEPATITIS C VIRUS ABY INDEX 0.04 INDEX (<0.8)
[2023-03-06] MEDS: FLUTICASONE PROP 0.05% NASAL SPRAY 16 GM (FLONASE) NARES SCH (15:34)
[2023-03-06] MEDS: HEPARIN SOD (PORCINE) 5000UNITS/ML 1ML VIAL/SYRINGE SQ SCH ×2 (15:38→21:56)
[2023-03-06 17:10] LABS: APPEARANCE, URINE CLEAR (CLEAR); BACTERIA, URINE AUTO NEGATIVE (NEGATIVE); BILIRUBIN, URINE AUTO NEGATIVE (NEGATIVE); BLOOD, URINE BLOOD NEGATIVE (NEGATIVE); COLOR, URINE STRAW (YELLOW); GLUCOSE, URINE (UA) AUTO NEGATIVE (NEGATIVE); KETONE, URINE AUTO NEGATIVE (NEGATIVE); LEUKOCYTE ESTERASE, URINE AUTO NEGATIVE (NEGATIVE); NITRITE, URINE AUTO NEGATIVE (NEGATIVE); PROTEIN, URINE AUTO NEGATIVE (NEGATIVE); RBC, URINE AUTO 0 /HPF (0-3); SPECIFIC GRAVITY URINE AUTO 1.009 (1.002-1.035); SQUAMOUS EPITHELIAL CELL UR AU 0 /HPF (0-6); UROBILINOGEN, URINE AUTO 0.2 mg/dL (0.0-2.0); WBC, URINE AUTO 0 /HPF (0-3)
[2023-03-06] MEDS ORDERED: PROHANCE 279.3MG/ML 15ML VIAL As Ordered ONE (17:45)
[2023-03-06] MEDS ORDERED: PROHANCE 279.3MG/ML 5ML VIAL As Ordered ONE (17:45)
[2023-03-06] MEDS: LevoFLOXacin IV 750 MG in IV 1 EA IV SCH (20:02)
[2023-03-06] MEDS ORDERED: VANCOMYCIN HCL 750 MG, VIAL MATE ADAPTER 1 EACH in D5W 250 ML IV SCH (21:00)
[2023-03-06] MEDS: VANCOMYCIN HCL 1,000 MG, VIAL MATE ADAPTER 1 EACH in D5W 250 ML IV SCH (21:58)
[2023-03-06] MEDS ORDERED: VANCOMYCIN HCL 500 MG in D5W MINI-BAG PLUS 100 ML IV SCH (22:00)
[2023-03-06] MEDS: ACETAMINOPHEN 650MG ER TAB (TYLENOL ARTHRITIS) PO SCH (22:18)
[2023-03-07] MEDS: NYSTATIN 100,000 UNITS/GM TOPICAL PWD 15GM TOP SCH ×3 (01:01→22:05)
[2023-03-07] MEDS: LR 1,000 ML IV SCH (01:02)
[2023-03-07] MEDS ORDERED: KETOROLAC 30 MG/ML 1ML VIAL IV ONE (02:00)
[2023-03-07 03:49] VITALS: BP 114/60; TEMP 97.3; O2SAT 97
[2023-03-07] MEDS: HEPARIN SOD (PORCINE) 5000UNITS/ML 1ML VIAL/SYRINGE SQ SCH ×3 (05:23→22:00)
[2023-03-07] MEDS: VANCOMYCIN HCL 1,000 MG, VIAL MATE ADAPTER 1 EACH in D5W 250 ML IV SCH (05:23)
[2023-03-07] MEDS: ACETAMINOPHEN 650MG ER TAB (TYLENOL ARTHRITIS) PO SCH ×3 (05:23→22:03)
[2023-03-07 06:11] LABS: HEMATOCRIT 41.9 % (42.0-52.0); HEMOGLOBIN 13.6 g/dl (13.5-17.5); MEAN CORPUSCULAR HEMOGLOBIN 26.5 pg (27.0-33.0); MEAN CORPUSCULAR HGB CONC 32.5 g/dl (32.0-36.5); MEAN CORPUSCULAR VOLUME 81.7 fl (80.0-96.0); PLATELET COUNT, AUTOMATED 410 10^3/uL (150-450); RED BLOOD COUNT 5.13 10^6/uL (4.30-6.10); WHITE BLOOD COUNT 9.6 10^3/uL (4.0-10.0)
[2023-03-07 06:30] LABS: BLOOD UREA NITROGEN 14 MG/DL (9-23); CALCIUM LEVEL 8.7 MG/DL (8.5-10.1); CARBON DIOXIDE LEVEL 26 MMOL/L (20-31); CHLORIDE LEVEL 105 MMOL/L (98-107); CREATININE FOR GFR 0.75 MG/DL (0.70-1.30); GLOMERULAR FILTRATION RATE > 60.0 (>60); GLUCOSE, FASTING 156 MG/DL (60-100); MAGNESIUM LEVEL 1.7 MG/DL (1.8-2.4); PHOSPHORUS LEVEL 3.9 MG/DL (2.5-4.9); POTASSIUM SERUM 4.6 MMOL/L (3.5-5.1); SODIUM LEVEL 138 MMOL/L (136-145)
[2023-03-07 07:31] VITALS: BP 110/62; TEMP 97.7; O2SAT 96
[2023-03-07] MEDS: CIPRODEX OTIC SUSP 7.5ML AS SCH ×2 (08:30→22:05)
[2023-03-07] MEDS: MAG SULF 1GM/100ML (MAG RUN) 1 GM in IV 1 EA IV SCH ×2 (08:30→09:43)
[2023-03-07] MEDS: FLUTICASONE PROP 0.05% NASAL SPRAY 16 GM (FLONASE) NARES SCH (08:31)
[2023-03-07] MEDS: SODIUM CHLORIDE NASAL 0.65% SPRAY BTL (OCEAN) SCH ×2 (08:31→21:00)
[2023-03-07] MEDS: LevoFLOXacin IV 750 MG in IV 1 EA IV SCH (13:54)
[2023-03-07] MEDS: VANCOMYCIN HCL 750 MG, VIAL MATE ADAPTER 1 EACH in D5W 250 ML IV SCH ×2 (14:00→22:44)
[2023-03-07 14:55] LABS: ERYTHROCYTE SEDIMENTATION RATE 93 mm/hr (0-15)
[2023-03-07] MEDS: predniSONE 20 MG TAB PO SCH (14:56)
[2023-03-07] MEDS: VANCOMYCIN HCL 500 MG in D5W MINI-BAG PLUS 100 ML IV SCH ×2 (15:00→22:44)
[2023-03-07 15:41] VITALS: BP 120/61; TEMP 98.1; O2SAT 99
[2023-03-07 16:02] VITALS: BP 122/63; TEMP 97.8; O2SAT 98
[2023-03-07 20:30] VITALS: BP 143/89; TEMP 98.1; O2SAT 97
[2023-03-08] MEDS: ACETAMINOPHEN 650MG ER TAB (TYLENOL ARTHRITIS) PO SCH (05:17)
[2023-03-08] MEDS: VANCOMYCIN HCL 750 MG, VIAL MATE ADAPTER 1 EACH in D5W 250 ML IV SCH (05:18)
[2023-03-08] MEDS: HEPARIN SOD (PORCINE) 5000UNITS/ML 1ML VIAL/SYRINGE SQ SCH (05:21)
[2023-03-08 06:00] VITALS: BP 112/75; TEMP 98.2; O2SAT 98
[2023-03-08] MEDS ORDERED: LevoFLOXacin 750 MG TABLET PO SCH (06:00)
[2023-03-08 06:04] LABS: HEMATOCRIT 43.3 % (42.0-52.0); HEMOGLOBIN 13.8 g/dl (13.5-17.5); MEAN CORPUSCULAR HEMOGLOBIN 25.8 pg (27.0-33.0); MEAN CORPUSCULAR HGB CONC 31.9 g/dl (32.0-36.5); MEAN CORPUSCULAR VOLUME 80.9 fl (80.0-96.0); PLATELET COUNT, AUTOMATED 445 10^3/uL (150-450); RED BLOOD COUNT 5.35 10^6/uL (4.30-6.10); WHITE BLOOD COUNT 8.9 10^3/uL (4.0-10.0)
[2023-03-08 06:32] LABS: BLOOD UREA NITROGEN 10 MG/DL (9-23); CALCIUM LEVEL 8.9 MG/DL (8.5-10.1); CARBON DIOXIDE LEVEL 24 MMOL/L (20-31); CHLORIDE LEVEL 107 MMOL/L (98-107); CREATININE FOR GFR 0.65 MG/DL (0.70-1.30); GLOMERULAR FILTRATION RATE > 60.0 (>60); GLUCOSE, FASTING 158 MG/DL (60-100); MAGNESIUM LEVEL 1.8 MG/DL (1.8-2.4); PHOSPHORUS LEVEL 3.8 MG/DL (2.5-4.9); POTASSIUM SERUM 4.4 MMOL/L (3.5-5.1); SODIUM LEVEL 140 MMOL/L (136-145)
[2023-03-08] MEDS: VANCOMYCIN HCL 500 MG in D5W MINI-BAG PLUS 100 ML IV SCH (07:37)
[2023-03-08 08:03] LABS: VANCOMYCIN RANDOM 13.7 UG/ML
[2023-03-08] MEDS: SODIUM CHLORIDE NASAL 0.65% SPRAY BTL (OCEAN) SCH (09:55)
[2023-03-08] MEDS: CIPRODEX OTIC SUSP 7.5ML AS SCH (09:56)
[2023-03-08] MEDS: NYSTATIN 100,000 UNITS/GM TOPICAL PWD 15GM TOP SCH (09:56)
[2023-03-08] MEDS: FLUTICASONE PROP 0.05% NASAL SPRAY 16 GM (FLONASE) NARES SCH (09:56)
[2023-03-08] MEDS: predniSONE 20 MG TAB PO SCH (09:56)
[2023-03-08] MEDS ORDERED: RA S0.65 NARES (15:04)
[2023-03-08] MEDS ORDERED: FLUTISP NARES (15:04)
[2023-03-08] MEDS ORDERED: PRED20TA PO (15:04)
[2023-03-08] MEDS ORDERED: CIPR7.5D2 AS (15:04)
[2023-03-08] MEDS ORDERED: LEVO1TAB40 PO (15:04)
== END 2023-03-08 15:05 | disposition home or self-care (01) ==
LOC: M ED 01:10 → M ED INP 07:38 → INTOOBSV 07:38 → M PCU 09:55 → M MS5PR 03-07 15:51
PROVIDERS: ADMIT Internal Medicine; ATTEND Internal Medicine
DX: R53.1 Weakness (principal); H92.02 Otalgia, left ear; H60.92 Unspecified otitis externa, left ear; H74.8X2 Other specified disorders of left middle ear and mastoid; L88 Pyoderma gangrenosum; S81.801A Unspecified open wound, right lower leg, initial encounter; H70.002 Acute mastoiditis without complications, left ear; S62.92XA Unspecified fracture of left hand, initial encounter for closed fracture; F31.9 Bipolar disorder, unspecified; E66.9 Obesity, unspecified; M79.7 Fibromyalgia; Z79.2 Long term (current) use of antibiotics; Z79.52 Long term (current) use of systemic steroids; Z79.899 Other long term (current) drug therapy; F17.218 Nicotine dependence, cigarettes, with other nicotine-induced disorders; I10 Essential (primary) hypertension; G47.33 Obstructive sleep apnea (adult) (pediatric); Z88.0 Allergy status to penicillin; Z88.2 Allergy status to sulfonamides; Z88.8 Allergy status to other drugs, medicaments and biological substances
CPT/HCPCS: 11104; 36415; 69436; 70487; 71045; 73110; 73130; 73200; 73590; 73718; 80048; 80076; 80202; 81001; 82150; 82803; 83036; 83605; 83735; 84100; 84145; 85025; 85027; 85610; 85652; 85730; 86140; 86705; 86709; 86803; 86850; 86900; 86901; 87040; 87070; 87077; 87086; 87186; 87205; 87340; 87389; 87486; 87581; 87633; 87641; 87798; 88305; 93005; 93041; 94760; 96361; 96365; 96366; 96367; 96368; 96372; 96375; 96376; 97110; 97165; 99285; G0378; J0131; J0457; J1100; J1885; J1956; J2250; J2405; J2765; J3010; J3370; J3475; J7512; L8613; Q9967

== ENCOUNTER 2023-05-24 13:20 | Emergency (ER) | payer MEDICARE ==
[~2023-05-24] VITALS: Ht 185.4 cm; Wt 56.8 kg
[~2023-05-24 13:20] MED LIST changes: +CIPR7.5D2 AS; +FLUTISP NARES; +LEVO1TAB40 PO; +PRED20TA PO; +RA S0.65 NARES
[2023-05-24 13:23] VITALS: BP 117/74; TEMP 98.1; O2SAT 99
== END 2023-05-24 17:02 | disposition left against medical advice (07) ==
LOC: M ED 13:20
DX: Z53.21 Procedure and treatment not carried out due to patient leaving prior to being seen by health care provider (principal)

== ENCOUNTER → 2023-07-14 | Outpatient (REF) | payer MEDICARE ==
[~2023-07-14] MED LIST changes: +CARB-115 PO; -CARB200T98 PO
[2023-07-14 17:02] LABS: GC DNA AMPLIFICATION NEGATIVE (NEGATIVE)
== END ==
LOC: M SFHCPLAZ 14:53
PROVIDERS: ATTEND Student in an Organized Health Care Education/Training Program
DX: Z72.52 High risk homosexual behavior (principal); Z11.3 Encounter for screening for infections with a predominantly sexual mode of transmission

== ENCOUNTER → 2023-07-14 | Outpatient (REF) | payer MEDICARE | LOC: M SFHCPLAZ 17:23 | PROVIDERS: ATTEND Family Medicine | DX: Z72.52 High risk homosexual behavior (principal) ==

== ENCOUNTER 2023-08-21 15:57 | Emergency (ER) | payer MEDICARE ==
[~2023-08-21] VITALS: Ht 185.4 cm; Wt 138.0 kg
[2023-08-21 15:57] VITALS: BP 150/86; TEMP 98.9; O2SAT 95
[2023-08-21] MEDS ORDERED: CLON2TAB7 (16:10)
[2023-08-21] MEDS ORDERED: LITH1TAB (16:10)
[2023-08-21] MEDS ORDERED: METH-1022 (16:10)
[2023-08-21] MEDS ORDERED: OXYC-517 (16:10)
[2023-08-21] MEDS ORDERED: KETOROLAC 30 MG/ML 1ML VIAL IV ONE (16:40)
[2023-08-21 17:39] LABS: HEMATOCRIT 44.6 % (42.0-52.0); HEMOGLOBIN 14.5 g/dl (13.5-17.5); MEAN CORPUSCULAR HGB CONC 32.5 g/dl (32.0-36.5); MEAN CORPUSCULAR VOLUME 80.1 fl (80.0-96.0); PLATELET COUNT, AUTOMATED 317 10^3/uL (150-450); RED BLOOD COUNT 5.57 10^6/uL (4.30-6.10)
[2023-08-21] MEDS: KETOROLAC 30 MG/ML 1ML VIAL IM ONE (17:56)
[2023-08-21 18:08] LABS: ETHYL ALCOHOL (ETHANOL) < 0.003 % (0.000-0.010)
[2023-08-21 18:10] LABS: ALBUMIN 3.2 G/DL (3.2-5.2); ALKALINE PHOSPHATASE 104 U/L (46-116); ALT/SGPT 17 U/L (7.0-40); AST/SGOT 11 U/L (<34); BILIRUBIN,DIRECT 0.1 MG/DL (<0.4); BILIRUBIN,TOTAL 0.5 MG/DL (0.3-1.2); BLOOD UREA NITROGEN 12 MG/DL (9-23); CALCIUM LEVEL 9.2 MG/DL (8.5-10.1); CARBON DIOXIDE LEVEL 26 MMOL/L (20-31); CHLORIDE LEVEL 108 MMOL/L (98-107); CREATININE FOR GFR 0.68 MG/DL (0.70-1.30); GLOMERULAR FILTRATION RATE > 60.0 (>56); GLUCOSE, FASTING 147 MG/DL (60-100); SALICYLATE LEVEL < 3.0 MG/DL (<30); SODIUM LEVEL 141 MMOL/L (136-145); TOTAL PROTEIN 6.6 G/DL (5.7-8.2)
[2023-08-21 18:11] LABS: LITHIUM LEVEL < 0.10 MMOL/L (1.0-1.20)
[2023-08-21 18:12] LABS: THYROID STIMULATING HORMONE 1.243 uIU/ML (0.55-4.78)
[2023-08-21] MEDS ORDERED: LORazepam 2 MG/ML 1ML VIAL IV STA (18:59)
[2023-08-21] MEDS: LORazepam 1 MG TAB PO STA (19:31)
== END 2023-08-21 20:42 | disposition left against medical advice (07) ==
LOC: M ED 15:57
DX: M54.6 Pain in thoracic spine (principal); M79.7 Fibromyalgia; E78.5 Hyperlipidemia, unspecified; E03.9 Hypothyroidism, unspecified; G47.33 Obstructive sleep apnea (adult) (pediatric); F17.210 Nicotine dependence, cigarettes, uncomplicated; F19.10 Other psychoactive substance abuse, uncomplicated; Z88.0 Allergy status to penicillin; Z88.2 Allergy status to sulfonamides; Z88.8 Allergy status to other drugs, medicaments and biological substances; Z79.899 Other long term (current) drug therapy; Z53.9 Procedure and treatment not carried out, unspecified reason
CPT/HCPCS: 72141; 80048; 80076; 80143; 80178; 82077; 84443; 85027; 96372; 99281; J1885

== ENCOUNTER → 2023-11-04 | Outpatient (REF) | payer MEDICARE ==
[~2023-11-04] MED LIST changes: +CLON2TAB7; +LITH1TAB; +METH-1022; +OXYC-517
== END ==
LOC: M LAB REF 20:18
PROVIDERS: ATTEND Student in an Organized Health Care Education/Training Program
DX: L03.116 Cellulitis of left lower limb (principal)

== ENCOUNTER 2023-12-08 16:20 | Emergency (ER) | payer MEDICARE ==
[~2023-12-08] VITALS: Ht 185.4 cm; Wt 136.0 kg
[~2023-12-08 16:20] MED LIST changes: +GABA-1172 PO; -GABA-282 PO
[2023-12-08 19:13] VITALS: BP 139/82; TEMP 96.8; O2SAT 98
[2023-12-08] MEDS ORDERED: PERCOCET PO (20:28)
[2023-12-08] MEDS ORDERED: MEDR4PAK PO (20:28)
== END 2023-12-08 20:37 | disposition home or self-care (01) ==
LOC: EDBD 16:20 → M ED 16:20
DX: M50.122 Cervical disc disorder at C5-C6 level with radiculopathy (principal); M50.123 Cervical disc disorder at C6-C7 level with radiculopathy; F17.200 Nicotine dependence, unspecified, uncomplicated; Z88.0 Allergy status to penicillin; Z88.2 Allergy status to sulfonamides; Z88.8 Allergy status to other drugs, medicaments and biological substances; Z79.899 Other long term (current) drug therapy

== ENCOUNTER → 2023-12-20 | Outpatient (CLI) | payer MEDICARE ==
[~2023-12-20] MED LIST changes: +MEDR4PAK PO; +PERCOCET PO; -ZIPR80CA12 PO; +ZIPR80CA31 PO
== END ==
LOC: M PAIN 13:00
PROVIDERS: ATTEND Nurse Practitioner Family
DX: M79.12 Myalgia of auxiliary muscles, head and neck (principal); G89.29 Other chronic pain; M54.2 Cervicalgia; G47.33 Obstructive sleep apnea (adult) (pediatric); E66.9 Obesity, unspecified; I11.9 Hypertensive heart disease without heart failure; E53.8 Deficiency of other specified B group vitamins; K76.0 Fatty (change of) liver, not elsewhere classified; M47.812 Spondylosis without myelopathy or radiculopathy, cervical region; Z79.891 Long term (current) use of opiate analgesic; Z79.899 Other long term (current) drug therapy; F17.210 Nicotine dependence, cigarettes, uncomplicated; Z88.0 Allergy status to penicillin; Z88.2 Allergy status to sulfonamides; Z68.41 Body mass index [BMI] 40.0-44.9, adult

== ENCOUNTER → 2024-03-02 | Outpatient (REF) | payer MEDICARE ==
[2024-03-02 15:05] LABS: HEPATITIS B SURFACE ANTIGEN NEGATIVE (NEGATIVE)
[2024-03-02 15:18] LABS: HIV 1&2 SCREEN NEGATIVE (NEGATIVE)
[2024-03-02 15:27] LABS: HEPATITIS B CORE ANTIBODY IGM NEGATIVE (NEGATIVE); HEPATITIS C VIRUS ABY INDEX < 0.02 INDEX (<0.8)
== END ==
LOC: M LAB REF 13:53
PROVIDERS: ATTEND Internal Medicine
DX: Z01.89 Encounter for other specified special examinations (principal); E60 Dietary zinc deficiency; Z72.52 High risk homosexual behavior

== ENCOUNTER → 2024-05-02 | Outpatient (CLI) | payer MEDICARE ==
[2024-05-02 16:24] LABS: RSV AMPLIFICATION NEGATIVE (NEGATIVE)
== END ==
LOC: M WUC 14:26
PROVIDERS: ATTEND Nurse Practitioner Family
DX: R06.02 Shortness of breath (principal); R05.9 Cough, unspecified

== ENCOUNTER → 2024-06-02 | Outpatient (REF) | payer MEDICARE | LOC: M LAB REF 14:31 | PROVIDERS: ATTEND Internal Medicine | DX: F31.9 Bipolar disorder, unspecified (principal) ==

== ENCOUNTER 2024-09-29 19:52 | Emergency (ER) | payer MEDICARE ==
[~2024-09-29] VITALS: Ht 185.4 cm; Wt 170.4 kg
[~2024-09-29 19:52] MED LIST changes: -IBUP-1022 PO; +IBUP600T42 PO; -OXYC-517
[2024-09-29] MEDS ORDERED: MORPHINE 4 MG/ML 1 ML VIAL IV PRN (20:20)
[2024-09-29] MEDS: METHOCARBAMOL 1,000 MG/10 ML VIAL IV ONE (21:02)
[2024-09-29] MEDS: KETOROLAC 30 MG/ML 1 ML VIAL IV ONE (21:02)
[2024-09-29] MEDS: NS (Normal Saline) 0.9% 1,000 ML IV ONE (21:02)
[2024-09-29 21:13] LABS: BASO # 0.1 10^3/uL (0.0-0.2); BASO % 1.0 % (0.0-1.0); EOS # 0.3 10^3/uL (0.0-0.5); EOS % 3.8 % (0.0-3.0); LYMPH # 3.5 10^3/uL (1.5-5.0); LYMPH % 40.3 % (24.0-44.0); MONO # 0.7 10^3/uL (0.0-0.8); MONO % 7.8 % (2.0-8.0); NEUTROPHILS # 4.0 10^3/uL (1.5-8.5); NEUTROPHILS % 46.6 % (36.0-66.0); PLATELET COUNT, AUTOMATED 244 10^3/uL (150-450)
[2024-09-29 21:36] LABS: CK-MB VALUE MASS 1.7 NG/ML (<3.6)
[2024-09-29 21:38] LABS: CALCIUM LEVEL 9.2 MG/DL (8.5-10.1); CARBON DIOXIDE LEVEL 27 MMOL/L (20-31); CHLORIDE LEVEL 105 MMOL/L (98-107); CPK CREATINE PHOSPHOKINASE 55 U/L (46-171); CREATININE FOR GFR 0.69 MG/DL (0.70-1.30); GLOMERULAR FILTRATION RATE > 90.0 (>56); MB/CK RELATIVE INDEX 3.09 (< OR =4); POTASSIUM SERUM 4.3 MMOL/L (3.5-5.1); SODIUM LEVEL 143 MMOL/L (136-145)
[2024-09-29 21:45] LABS: LITHIUM LEVEL < 0.10 MMOL/L (1.0-1.20)
[2024-09-30] MEDS ORDERED: CYCL5TAB4 PO (01:06)
[2024-09-30] MEDS ORDERED: LURA20TA PO (01:06)
[2024-09-30] MEDS ORDERED: HOME MED LIST COMPLETE! XX SCH (01:10)
[2024-09-30] MEDS: METHOCARBAMOL 1,000 MG/10 ML VIAL IV ONE (16:05)
[2024-09-30] MEDS: OLANZapine ORAL DISINTEGRATING TAB 5MG PO ONE (16:05)
[2024-09-30] MEDS: KETOROLAC 30 MG/ML 1 ML VIAL IV ONE (16:06)
[2024-09-30] MEDS: ACETAMINOPHEN *IV* 1,000 MG in IV 1 EA IV ONE (16:06)
[2024-10-01] MEDS: LURASIDONE HCL 20 MG TAB PO SCH (09:24)
[2024-10-01] MEDS: ULTRACET TAB PO SCH (09:32)
[2024-10-01] MEDS: KETOROLAC 30 MG/ML 1 ML VIAL IV ONE (09:33)
[2024-10-01] MEDS: SENNOSIDES/DOCUSATE SODIUM 8.6 MG/50MG TAB PO SCH (21:00)
[2024-10-01] MEDS: PANTOPRAZOLE 40MG TAB PO SCH (21:21)
[2024-10-01] MEDS: KETOROLAC 30 MG/ML 1 ML VIAL IV PRN (21:21)
[2024-10-02] MEDS ORDERED: ROLLMIS8 XX (15:35)
[2024-10-02] MEDS ORDERED: physical therapy (15:56)
[2024-10-02] MEDS ORDERED: KETO-204 PO (16:13)
[2024-10-02] MEDS ORDERED: TRAM1TAB42 PO (16:13)
[2024-10-02 17:40] VITALS: BP 138/76; TEMP 97.8; O2SAT 93
== END 2024-10-02 17:40 | disposition home or self-care (01) ==
LOC: M ED 19:52
DX: M54.50 Low back pain, unspecified (principal); E78.5 Hyperlipidemia, unspecified; E03.9 Hypothyroidism, unspecified; G47.33 Obstructive sleep apnea (adult) (pediatric); M79.7 Fibromyalgia; M50.20 Other cervical disc displacement, unspecified cervical region; F17.200 Nicotine dependence, unspecified, uncomplicated; Z88.0 Allergy status to penicillin; Z88.2 Allergy status to sulfonamides; Z88.8 Allergy status to other drugs, medicaments and biological substances
CPT/HCPCS: 70450; 72125; 72128; 72131; 72141; 80048; 80178; 82550; 82553; 84484; 85025; 96372; 96374; 96375; 96376; 97116; 97161; 97165; 97530; 97535; 99285; J0131; J1885; J2060; J2800

== ENCOUNTER → 2024-10-10 | Outpatient (REF) | payer MEDICARE, OTHER ==
[~2024-10-10] MED LIST changes: +CYCL5TAB4 PO; +KETO-204 PO; +LURA20TA PO; +ROLLMIS8 XX; +TRAM1TAB42 PO; +physical therapy
[2024-10-14 14:33] LABS: LYME TOTAL ANTIBODY CIA <= 0.90 Index (<=0.90)
== END ==
LOC: M LAB REF 15:08
PROVIDERS: ATTEND Internal Medicine
DX: M50.10 Cervical disc disorder with radiculopathy, unspecified cervical region (principal); E04.9 Nontoxic goiter, unspecified; G89.4 Chronic pain syndrome

== ENCOUNTER → 2024-10-12 | Outpatient (CLI) | payer MEDICARE | LOC: M WUC 14:03 | PROVIDERS: ATTEND Internal Medicine | DX: M25.561 Pain in right knee (principal); M25.562 Pain in left knee ==